=== PATIENT | female | born 1990 | race Two or more races ===

== ENCOUNTER 2020-08-17 12:30 | Outpatient (REF) | payer MEDICAID, SELFPAY ==
[2020-08-17 13:31] LABS: COVID-19 Test Negative (Negative); IDNOW Serial# 55D5AD1C
== END 2020-08-17 12:31 | disposition home or self-care (01) ==
LOC: HO.LAB 12:30
PROVIDERS: Visit Provider Internal Medicine
DX: Z20.822 Contact with and (suspected) exposure to COVID-19 (principal)
CPT/HCPCS: 36415; 87635; C9803

== ENCOUNTER 2021-08-23 20:30 | Emergency (ER) | payer MEDICAID, SELFPAY ==
--- NOTE | ~2021-08-23 | US_ITS ---
EXAMINATION: US PELVIS CLINICAL INFORMATION: Heavy vaginal bleeding. Clinical one month. Cramping. LMP now. COMPARISON: OB ultrasound 10/05/2014. TECHNIQUE: Ultrasound of the pelvis is performed using both transabdominal and transvaginal transducers along with Doppler. Transvaginal imaging is performed due to inadequate visualization transabdominally. FINDINGS: Uterus: The uterus is anteverted and measures 11.2 cm x 5.2 cm x 4.7 cm. Estimated volume 8.0 mL. No fibroids are identified. The endometrial echo complex measures 1.2 cm in maximum width and trace endometrial cavity fluid is noted. The right ovary measures 3.2 cm x 2.4 cm x 2.0 cm and is normal in appearance. Estimated volume 8.0 mL. Transabdominal spectral imaging demonstrates grossly normal low resistive arterial and venous waveforms within the right ovary. The left ovary measures 3.0 cm x 2.5 cm x 1.8 cm. Estimated volume 7.1 mm. A single 1.2 cm x 1.0 cm x 0.8 cm rounded anechoic focus is present within the left ovary. Low resistive mixed arterial and venous waveforms are noted within the left ovary. Trace anechoic fluid is noted in the pelvic cul-de-sac. US/US pelvic and transvaginal IMPRESSION: *Normal sonographic appearance of the uterus and ovaries. The endometrial echo complex measures 1.2 cm in width, within normal limits of size. Trace heterogeneous fluid is noted within the fundus of the endometrial cavity and is consistent with physiologic fluid. Trace anechoic free to peritoneal fluid which is physiologic in appearance is noted in the pelvic cul-de-sac.
[2021-08-23 21:49] VITALS: BP 119/75; PULSE 62; RESP 16; TEMP 37.2; O2SAT 98; BMI 32.3
[2021-08-23 22:09] LABS: MANUAL DIFF FLAG NO
[2021-08-23 22:12] LABS: Basophils Absolute Auto 0.1 X10*3/uL (0.0-0.2); Basophils Percent Auto 0.6 % (0-2); Eosinophils Absolute Auto 0.3 X10*3/uL (0.0-0.4); Eosinophils Percent Auto 3.3 % (0-4); Hematocrit 39.4 % (37.0-47.0); Hemoglobin 13.3 g/dl (12.0-16.0); Imm Gran Abs Auto 0.02 X10*3/uL (0.00-0.03); Imm Gran Pct Auto 0.2 % (0.0-0.4); Lymphocytes Absolute Auto 4.4 X10*3/uL (1.2-4.9); Lymphocytes Percent Auto 48.2 % (20-40); Mean Corpuscular HGB Conc 33.8 g/dl (31.0-35.0); Mean Corpuscular Hemoglobin 32.3 pg (27.0-33.0); Mean Corpuscular Volume 95.6 fL (80.0-98.0); Mean Platelet Volume 9.3 fL (9.4-12.3); Monocytes Absolute Auto 0.6 X10*3/uL (0.1-1.2); Monocytes Percent Auto 6.8 % (2-11); Neutrophils Absolute Auto 3.7 x10*3/uL (2.0-8.3); Neutrophils Percent Auto 40.9 % (45-73); Platelet Count 235 X10*3/uL (160-400); Red Blood Count 4.12 X10*6/uL (4.20-5.50); Red Cell Distribution Width 11.9 % (11.0-16.0); White Blood Count 9.1 X10*3/uL (4.8-10.8)
[2021-08-23 22:31] LABS: Alanine Aminotransferase 40 U/L (0-31); Albumin Level 3.7 g/dL (3.5-5.0); Alkaline Phosphatase 61 U/L (39-117); Anion Gap 8 (12-20); Aspartate Amino Transferase 29 U/L (5-31); Bilirubin Total 0.2 mg/dL (0.0-1.0); Blood Urea Nitrogen 17 mg/dL (9-16); Calcium 9.1 mg/dL (8.4-10.2); Carbon Dioxide 29 mmol/L (22-29); Chloride 105 mmol/L (96-108); Creatinine Clr Calc Pharmacy 84.1; Estimated Glomerular Filt Rate 58; Glucose Random 91 mg/dL (60-115); Potassium 3.9 mmol/L (3.3-5.1); Sodium 138 mmol/L (135-145); Total Protein 6.6 g/dL (6.5-8.0)
[2021-08-23 22:35] LABS: HCG Quantitative < 2 mIU/mL
--- NOTE | 2021-08-23 23:21 | ED_ITS ---
HPI - Female Genitourinary General Chief complaint: Abdominal Pain Stated complaint: menstrual bleeding, numbness Time Seen by Provider: 08/23/21 23:09 Source: patient Mode of arrival: ambulatory Limitations: no limitations History of Present Illness HPI Narrative: 31-year-old female presents with heavy menstrual bleeding, fatigue and dizziness. States that she had an 1 month ago MD elicited complaint: vaginal bleeding and pelvic pain Onset (ago): day(s) Location of symptoms: vaginal Severity: moderate Female Urogenital Radiation: Non-Radiating Severity scale (1-10): 8 Quality of pain: cramping and aching Consistency: progressively worsening Vaginal discharge: none Vaginal bleeding: heavy, dark red and clots Exacerbating factors: movement Relieving factors: none Associated symptoms: abdominal pain, weakness, chills and nausea Treatment prior to arrival: none Sexual activity: Yes Patient : No Related Data Allergies Allergy/AdvReac Type Severity Reaction Status Date / Time No Known Allergies Allergy Mild NOT Unverified 01/13/20 17:25 APPLICABLE Review of Systems Review of Systems: Constitutional: No Fever, cough Chills ENT/Mouth: No Ear Pain, No Hoarseness, No sore throat Eyes: No Eye Pain, No Swelling, No Redness, No Foreign Body Cardiovascular: No Chest Pain, No SOB Respiratory: No Cough, No Dyspnea Gastrointestinal: No Nausea, No Vomiting, No Diarrhea, No abdominal Pain Genitourinary: Positive heavy vaginal bleeding, positive vaginal pain No Dysuria, No Hematuria Musculoskeletal: No joint pain, No Myalgias, No Joint Swelling Skin: No Skin lacerations, No rash Neuro: No Weakness, No Numbness, No Paresthesias, No Loss of Consciousness, No Dizziness, No Headache Psych: No Anxiety/Panic, No Depression Heme/Lymph: no easy bruising, no Lymphadenopathy Endocrine: No Polyuria, No Polydipsia Yes all other systems are reviewed and are negative [facility] Past Medical History Attestation statement: The following information was validated with the patient. Source: old records reviewed Social History Social History Advance Directives: No Advance Directives Information Provided: Yes Patient : No Physical Exam Vital Signs: Vital Signs: Last Vital Signs Temp 97.8 F 08/24/21 01:01 Pulse 53 08/24/21 01:01 Resp 26 H 08/24/21 01:01 BP 115/63 08/24/21 01:01 Pulse Ox 98 08/24/21 01:01 BMI result Body Mass Index 32.3 Appearance: Alert. Oriented X3. Mild distress. Eyes: Pupils equal, round and reactive to light. ENT: Pharynx normal. Neck: Normal inspection. Neck supple. CVS: Normal heart rate and rhythm. Pulses normal. Respiratory: No respiratory distress. Breath sounds normal. Abdomen: Soft and suprapubic and adnexal tenderness to palpation Skin: Skin warm and dry. Normal skin color. Normal skin turgor. Extremities: No lower extremity edema. Gait well balanced and well coordinated. Neuro: No motor deficit. No sensory deficit. Cranial nerves 2-12 intact Course Course Course Narrative: 31-year-old female presents for heavy menstrual cycle, exhaustion, dizziness, and left arm tingling. States that she had a procedural approximately 1 month ago. Physical exam indicates tenderness to palpation to the suprapubic and bilateral adnexa. Will order pelvic ultrasound to rule out retained s ecundum. :29 pelvic ultrasound is normal. 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 Patient verbalized understanding of and agrees to plan of care to discharge home. Verbalized understanding of signs and symptoms indicating need for emergent intervention MDM - Female Genitourinary MDM Narrative Medical decision making narrative: Retained secundum, PA Differential Diagnosis Differential diagnosis: Likely cervicitis and cystitis Medical Records Attestation: I reviewed the patient's medical records. Lab Data Attestation: I reviewed the patient's lab results. Result diagrams: 08/23/21 22:04 08/23/21 22:04 Labs: Lab Results 08/23/21 08/23/21 08/24/21 Range/Units 22:04 22:04 01:05 WBC 9.1 (4.8-10.8) X10*3/uL RBC 4.12 L (4.20-5.50) X10*6/uL Hgb 13.3 (12.0-16.0) g/dl Hct 39.4 (37.0-47.0) % MCV 95.6 (80.0-98.0) fL MCH 32.3 (27.0-33.0) pg MCHC 33.8 (31.0-35.0) g/dl RDW 11.9 (11.0-16.0) % Plt Count 235 (160-400) X10*3/uL MPV 9.3 L (9.4-12.3) fL Immature Gran % (Auto) 0.2 (0.0-0.4) % Neut % (Auto) 40.9 L (45-73) % Lymph % (Auto) 48.2 H (20-40) % [place] % (Auto) 6.8 (2-11) % Eos % (Auto) 3.3 (0-4) % Baso % (Auto) 0.6 (0-2) % Lymph # (Auto) 4.4 (1.2-4.9) X10*3/uL [place] # (Auto) 0.6 (0.1-1.2) X10*3/uL Eos # (Auto) 0.3 (0.0-0.4) X10*3/uL Baso # (Auto) 0.1 (0.0-0.2) X10*3/uL Abs Immat Gran (auto) 0.02 (0.00-0.03) X10*3/uL Absolute Neuts (auto) 3.7 (2.0-8.3) x10*3/uL Absolute Nucleated RBC 0.000 (0.0-0.012) X10*3/uL Nucleated RBC % (auto) 0.0 (0.0-0.2) /100WBC Sodium 138 (135-145) mmol/L Potassium 3.9 (3.3-5.1) mmol/L Chloride 105 (96-108) mmol/L Carbon Dioxide 29 (22-29) mmol/L Anion Gap 8 L (12-20) BUN 17 H (9-16) mg/dL Creatinine 1.11 (0.5-1.4) mg/dL Estim Creat Clear Calc 84.1 Estimated GFR 58 Random Glucose 91 (60-115) mg/dL Calcium 9.1 (8.4-10.2) mg/dL Total Bilirubin 0.2 (0.0-1.0) mg/dL AST 29 (5-31) U/L ALT 40 H (0-31) U/L Alkaline Phosphatase 61 (39-117) U/L Total Protein 6.6 (6.5-8.0) g/dL Albumin 3.7 (3.5-5.0) g/dL Beta HCG, Quant < 2 mIU/mL Influenza Type A (PCR) NEGATIVE (Negative) Influenza Type B (PCR) NEGATIVE (Negative) RSV RNA Qual (PCR) NEGATIVE (Negative) SARS-CoV-2 RNA (RT-PCR) NEGATIVE (Negative) Imaging Data Pelvic ultrasound: Attestation: I personally reviewed and interpreted this imaging study as follows: Radiologist's impression: EXAMINATION:? US PELVIS CLINICAL INFORMATION:? Heavy vaginal bleeding. Clinical one month. Cramping. LMP now. COMPARISON: OB ultrasound 10/05/2014. TECHNIQUE: Ultrasound of the pelvis is performed using both transabdominal and transvaginal transducers along with Doppler. Transvaginal imaging is performed due to inadequate visualization transabdominally. FINDINGS: Uterus: The uterus is anteverted and measures 11.2 cm x 5.2 cm x 4.7 cm. Estimated volume 8.0 mL. No fibroids are identified. The endometrial echo complex measures 1.2 cm in maximum width and trace endometrial cavity fluid is noted. The right ovary measures 3.2 cm x 2.4 cm x 2.0 cm and is normal in appearance. Estimated volume 8.0 mL. Transabdominal spectral imaging demonstrates grossly normal low resistive arterial and venous waveforms within the right ovary. The left ovary measures 3.0 cm x 2.5 cm x 1.8 cm. Estimated volume 7.1 mm. A single 1.2 cm x 1.0 cm x 0.8 cm rounded anechoic focus is present within the left ovary. Low resistive mixed arterial and venous waveforms are noted within the left ovary. Trace anechoic fluid is noted in the pelvic cul-de-sac. US/US pelvic and transvaginal IMPRESSION: *Normal sonographic appearance of the uterus and ovaries. The endometrial echo complex measures 1.2 cm in width, within normal limits of size. Trace heterogeneous fluid is noted within the fundus of the endometrial cavity and is consistent with physiologic fluid. Trace anechoic free to peritoneal fluid which is physiologic in appearance is noted in the pelvic cul-de-sac. Discharge Plan Discharge Clinical Impression: Dysfunctional uterine bleeding Patient Disposition: Home, Self-Care Instructions: Dysfunctional Uterine Bleeding (ED) Additional Instructions: You were evaluated for abnormal vaginal bleeding. Pelvic ultrasound is negative for retained secundum. 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 Flu and COVID are negative Thank you for choosing this emergency department for evaluation. Please follow-up with primary care physician as needed. Return to the emergency department for any new, concerning, or worsening symptoms.
[2021-08-24 01:01] VITALS: BP 115/63; PULSE 53; RESP 26; TEMP 36.6; O2SAT 98
[2021-08-24 01:48] LABS: Influenza A PCR NEGATIVE (Negative); Influenza B PCR NEGATIVE (Negative); Resp Syncy Virus RNA Qual PCR NEGATIVE (Negative); SARS COV2 PCR INHOUSE NEGATIVE (Negative)
== END 2021-08-24 02:14 | disposition home or self-care (01) ==
PROVIDERS: Nurse Practitioner Family; Emergency Provider Emergency Medicine
DX: N93.8 Other specified abnormal uterine and vaginal bleeding (principal); Z20.822 Contact with and (suspected) exposure to COVID-19
CPT/HCPCS: 0241U; 36415; 76830; 76856; 80053; 84702; 85025; 99284

== ENCOUNTER 2022-11-25 13:41 | Emergency (ER) | payer MEDICAID, SELFPAY ==
--- NOTE | ~2022-11-25 | XR_ITS ---
EXAMINATION: XR CHEST CLINICAL INFORMATION: Chest pain COMPARISON: October 2017. TECHNIQUE: Frontal view of the chest was obtained. 2:12 PM FINDINGS: No significant abnormality is noted involving the heart, lungs, mediastinum, bony thorax or soft tissues. XR/XR chest 1V IMPRESSION: Unremarkable examination.
--- NOTE | 2022-11-25 13:43 | ECG_ITS ---
Test Reason : CHEST TIGHTNESS Blood Pressure : / mmHG Vent. Rate : 072 BPM Atrial Rate : 072 BPM P-R Int : 130 ms QRS Dur : 074 ms QT Int : 360 ms P-R-T Axes : 051 052 017 degrees QTc Int : 394 ms Normal sinus rhythm with sinus arrhythmia Normal ECG When compared with ECG of 16-NOV-2017 10:39, No significant change was found Referred By: Zain Maguire Electronically Signed By:ANNE RIOS
--- NOTE | 2022-11-25 13:46 | ED_ITS ---
HPI - General Adult General Chief complaint: Chest Pain Stated complaint: chest pain and tightness Time Seen by Provider: 11/25/22 17:44 Source: patient Mode of arrival: ambulatory Limitations: no limitations History of Present Illness HPI narrative: Patient with no significant medical history history of anxiety and stress not on any control medication no history of DVT no recent travel comes here for mid chest pain for last 3- 4 days which days constant in mid chest sharp increases on taking a deep breath no cough nonsmoker no substance abuse Related Data Previous Rx's Medication Instructions Recorded lorazepam 0.5 mg tablet (Ativan) 0.5 mg PO BEDTIME PRN anxiety #14 11/25/22 tabs Allergies Allergy/AdvReac Type Severity Reaction Status Date / Time No Known Allergies Allergy Mild NOT Unverified 01/13/20 17:25 APPLICABLE Review of Systems Review of Systems: Yes all other systems are reviewed and are negative REPLACED BY [facility] Social History Social History Smoked in Last 30 Days: No Use of substances other than those prescribed or required for medical reasons: Yes Substance Use Type: Marijuana Advance Directives: No Advance Directives Information Provided: Yes Physical Exam ED Vital Signs: Vital Signs - 24 hr 11/25/22 14:28 Temperature 96.5 F L Pulse Rate 73 Respiratory Rate 20 Blood Pressure 116/76 Pulse Oximetry 100 Oxygen Delivery Method Room Air BMI result Body Mass Index 41.0 Appearance: Alert. Oriented X3. No acute distress. Anxious Eyes: PERRLA, No Nystagmus ENT: Pharynx normal. Oral Mucosa moist Neck: Normal inspection. Neck supple. CVS: Normal heart rate and rhythm. Pulses normal. Respiratory: No respiratory distress. Equal air entry bilateral, no wheezing/rales/rhonchi Abdomen: Soft and nontender. Bowel sounds are present, no mass palpable, no CVA tenderness Skin: Skin warm and dry. Normal skin color. Normal skin turgor. Extremities: No lower extremity edema. No calf tenderness Neuro: Oriented X 3. No motor deficit. Course Course Course Narrative: This is an RME: Additional HPI, ROS, PE not included below will be deferred to primary provider. 32-year-old female presents with substernal chest pain that radiates into the back the past 3 days, sharp in nature. Reports g uriel had a heart attack recently so she well on it to get checked out. She also reports associated anxiety. No shortness of breath, fevers, chills, nausea, vomiting, abdomina pain. Plan labs, imaging, EKG. Medications Administered Discontinued Medications Generic Name Dose Route Start Last Admin Trade Name Anay PRN Reason Stop Dose Admin Lorazepam 1 mg 11/25/22 18:29 11/25/22 19:14 Lorazepam 1 Mg Tablet PO 11/25/22 18:30 1 mg ONCE ONE Administration Medical Decision Making Medical Decision Making [facility] Narrative: Patient atypical chest pain for last 3 days normal EKG normal troponin likely from anxiety will discharge patient home on Ativan heart score is 0 Lab Data [facility] Lab Attestation statement: I reviewed the patient's lab results. 11/25/22 14:24 11/25/22 14:24 Labs: Lab Results 11/25/22 11/25/22 11/25/22 Range/Units 14:24 14:24 14:24 WBC 7.7 (4.8-10.8) X10*3/uL RBC 4.08 L (4.20-5.50) X10*6/uL Hgb 13.0 (12.0-16.0) g/dl Hct 38.8 (37.0-47.0) % MCV 95.1 (80.0-98.0) fL MCH 31.9 (27.0-33.0) pg MCHC 33.5 (31.0-35.0) g/dl RDW 11.9 (11.0-16.0) % Plt Count 253 (160-400) X10*3/uL MPV 9.2 L (9.4-12.3) fL Immature Gran % (Auto) 0.5 H (0.0-0.4) % Neut % (Auto) 51.6 (45-73) % Lymph % (Auto) 38.2 (20-40) % [place] % (Auto) 7.4 (2-11) % Eos % (Auto) 1.8 (0-4) % Baso % (Auto) 0.5 (0-2) % Lymph # (Auto) 3.0 (1.2-4.9) X10*3/uL [place] # (Auto) 0.6 (0.1-1.2) X10*3/uL Eos # (Auto) 0.1 (0.0-0.4) X10*3/uL Baso # (Auto) 0.0 (0.0-0.2) X10*3/uL Abs Immat Gran (auto) 0.04 H (0.00-0.03) X10*3/uL Absolute Neuts (auto) 4.0 (2.0-8.3) x10*3/uL Absolute Nucleated RBC 0.000 (0.0-0.012) X10*3/uL Nucleated RBC % (auto) 0.0 (0.0-0.2) /100WBC Sodium 140 (135-145) mmol/L Potassium 3.9 (3.3-5.1) mmol/L Chloride 104 (96-108) mmol/L Carbon Dioxide 25 (22-29) mmol/L Anion Gap 15 (12-20) BUN 8 L (9-16) mg/dL Creatinine 0.97 (0.5-1.4) mg/dL Estim Creat Clear Calc 108.3 Estimated GFR > 60 Random Glucose 96 (60-115) mg/dL Calcium 9.7 D (8.4-10.2) mg/dL Magnesium 1.8 (1.6-2.6) mg/dL Total Bilirubin 0.4 (0.0-1.0) mg/dL AST 17 (5-31) U/L ALT 32 H (0-31) U/L Alkaline Phosphatase 69 (39-117) U/L Troponin I High Sens (<3.5-17.0) ng/L B-Natriuretic Peptide 10 (<100) pg/mL Total Protein 7.2 (6.5-8.0) g/dL Albumin 3.9 (3.5-5.0) g/dL COVID-19 (NICOLE) (Negative) COVID-19 Clin Com 11/25/22 11/25/22 Range/Units 14:24 14:24 WBC (4.8-10.8) X10*3/uL RBC (4.20-5.50) X10*6/uL Hgb (12.0-16.0) g/dl Hct (37.0-47.0) % MCV (80.0-98.0) fL MCH (27.0-33.0) pg MCHC (31.0-35.0) g/dl RDW (11.0-16.0) % Plt Count (160-400) X10*3/uL MPV (9.4-12.3) fL Immature Gran % (Auto) (0.0-0.4) % Neut % (Auto) (45-73) % Lymph % (Auto) (20-40) % [place] % (Auto) (2-11) % Eos % (Auto) (0-4) % Baso % (Auto) (0-2) % Lymph # (Auto) (1.2-4.9) X10*3/uL [place] # (Auto) (0.1-1.2) X10*3/uL Eos # (Auto) (0.0-0.4) X10*3/uL Baso # (Auto) (0.0-0.2) X10*3/uL Abs Immat Gran (auto) (0.00-0.03) X10*3/uL Absolute Neuts (auto) (2.0-8.3) x10*3/uL Absolute Nucleated RBC (0.0-0.012) X10*3/uL Nucleated RBC % (auto) (0.0-0.2) /100WBC Sodium (135-145) mmol/L Potassium (3.3-5.1) mmol/L Chloride (96-108) mmol/L Carbon Dioxide (22-29) mmol/L Anion Gap (12-20) BUN (9-16) mg/dL Creatinine (0.5-1.4) mg/dL Estim Creat Clear Calc Estimated GFR Random Glucose (60-115) mg/dL Calcium (8.4-10.2) mg/dL Magnesium (1.6-2.6) mg/dL Total Bilirubin (0.0-1.0) mg/dL AST (5-31) U/L ALT (0-31) U/L Alkaline Phosphatase (39-117) U/L Troponin I High Sens < 2.7 (<3.5-17.0) ng/L B-Natriuretic Peptide (<100) pg/mL Total Protein (6.5-8.0) g/dL Albumin (3.5-5.0) g/dL COVID-19 ([place]ICOLE) Negative (Negative) COVID-19 Clin Com See Note Independent Interpretation I performed an independent interpretation of an: EKG Interpretation: Normal sinus rhythm with sinus arrhythmia heart rate 72 beats per minute no acu te ST-T no acute ischemia Discharge Plan Discharge Clinical Impression: Atypical chest pain, Anxiety Patient Disposition: Home, Self-Care Instructions: Chest Pain (ED), Anxiety (ED) Additional Instructions: Rest at home take medication to relax and sleep Follow with PCP for further evaluation as needed Prescriptions: New lorazepam [Ativan] 0.5 mg tablet 0.5 mg PO BEDTIME PRN (Reason: anxiety) Qty: 14 0RF Stand Alone Forms: Work/School Release Interventions: ED Discharge Assessment Last Done: 11/25/22 19:17 Discharge Date/Time: 11/25/22 19:17
[2022-11-25 14:28] VITALS: BP 116/76; PULSE 73; RESP 20; TEMP 35.8; O2SAT 100; BMI 41.0
[2022-11-25 14:38] LABS: MANUAL DIFF FLAG NO
[2022-11-25 14:42] LABS: Basophils Percent Auto 0.5 % (0-2); Eosinophils Absolute Auto 0.1 X10*3/uL (0.0-0.4); Eosinophils Percent Auto 1.8 % (0-4); Hematocrit 38.8 % (37.0-47.0); Imm Gran Abs Auto 0.04 X10*3/uL (0.00-0.03); Imm Gran Pct Auto 0.5 % (0.0-0.4); Lymphocytes Percent Auto 38.2 % (20-40); Mean Corpuscular HGB Conc 33.5 g/dl (31.0-35.0); Mean Corpuscular Hemoglobin 31.9 pg (27.0-33.0); Mean Corpuscular Volume 95.1 fL (80.0-98.0); Mean Platelet Volume 9.2 fL (9.4-12.3); Monocytes Absolute Auto 0.6 X10*3/uL (0.1-1.2); Monocytes Percent Auto 7.4 % (2-11); Neutrophils Percent Auto 51.6 % (45-73); Platelet Count 253 X10*3/uL (160-400); Red Blood Count 4.08 X10*6/uL (4.20-5.50); Red Cell Distribution Width 11.9 % (11.0-16.0); White Blood Count 7.7 X10*3/uL (4.8-10.8)
[2022-11-25 14:54] LABS: Alanine Aminotransferase 32 U/L (0-31); Albumin Level 3.9 g/dL (3.5-5.0); Alkaline Phosphatase 69 U/L (39-117); Anion Gap 15 (12-20); Aspartate Amino Transferase 17 U/L (5-31); Bilirubin Total 0.4 mg/dL (0.0-1.0); Blood Urea Nitrogen 8 mg/dL (9-16); Calcium 9.7 mg/dL (8.4-10.2); Carbon Dioxide 25 mmol/L (22-29); Chloride 104 mmol/L (96-108); Creatinine Clr Calc Pharmacy 108.3; Estimated Glomerular Filt Rate > 60; Glucose Random 96 mg/dL (60-115); Magnesium 1.8 mg/dL (1.6-2.6); Potassium 3.9 mmol/L (3.3-5.1); Sodium 140 mmol/L (135-145); Total Protein 7.2 g/dL (6.5-8.0)
[2022-11-25 14:59] LABS: B Type Natriuretic Peptide 10 pg/mL (<100)
[2022-11-25 15:01] LABS: COVID-19 Test Negative (Negative); IDNOW Serial# BCCEAD1C
[2022-11-25 15:12] LABS: Troponin-I High Sensitivity < 2.7 ng/L (<3.5-17.0)
[2022-11-25] MEDS: LORazepam 1 MG TABLET PO (19:14)
== END 2022-11-25 19:17 | disposition home or self-care (01) ==
PROVIDERS: Physician Assistant; Emergency Provider Internal Medicine
DX: R07.89 Other chest pain (principal); F41.9 Anxiety disorder, unspecified; Z20.822 Contact with and (suspected) exposure to COVID-19; F12.90 Cannabis use, unspecified, uncomplicated; E66.9 Obesity, unspecified; Z68.41 Body mass index [BMI] 40.0-44.9, adult
CPT/HCPCS: 36415; 71045; 80053; 83735; 83880; 84484; 85025; 87635; 93005; 99283; 99284

== ENCOUNTER → 2022-11-25 13:43 | Outpatient (BNV) | payer MEDICAID, SELFPAY | PROVIDERS: Emergency Provider Internal Medicine; Visit Provider Internal Medicine | DX: R07.89 Other chest pain (principal) | CPT/HCPCS: 93010 ==

== ENCOUNTER 2023-05-13 16:42 | Emergency (ER) | payer MEDICAID, SELFPAY ==
--- NOTE | ~2023-05-13 | XR_ITS ---
EXAMINATION: XR THORACIC SPINE CLINICAL INFORMATION: Fall COMPARISON: None available. TECHNIQUE: 3 views of the thoracic spine were obtained. FINDINGS: Bone alignment is normal. No fracture or dislocation. Normal disc spaces. Normal paraspinal soft tissues. XR/XR thoracic spine 3V IMPRESSION: Unremarkable examination.
--- NOTE | ~2023-05-13 | XR_ITS ---
EXAMINATION: XR LUMBOSACRAL SPINE CLINICAL INFORMATION: Fall COMPARISON: None available. TECHNIQUE: Three views of the lumbosacral spine. FINDINGS: The vertebral bodies and posterior elements are normal. The disc spaces are preserved and the vertebral alignment is normal. The paraspinal soft tissues are normal. XR/XR lumbar spine 2-3V IMPRESSION: Unremarkable examination.
[2023-05-13 16:44] VITALS: BP 107/76; PULSE 61; RESP 16; TEMP 36.2; O2SAT 98; BMI 39.5
--- NOTE | 2023-05-13 16:47 | ED_ITS ---
HPI - General Adult General Chief complaint: Fall Stated complaint: fell back pain Time Seen by Provider: 05/13/23 17:56 Source: patient Mode of arrival: ambulatory Limitations: no limitations History of Present Illness HPI narrative: Patient is a 32-year-old female presenting to the ED with complaint of upper and lower back pain after a slip and fall on ice this morning. States she landed directly on her back. Did not take any OTC medications at home. Denies head strike or loss of consciousness, is not anticoagulated. Denies any weakness, numbness, or tingling to extremities. complaint: back pain Onset (ago): hour(s) Location: back Radiation: non-radiation Severity: moderate Quality: aching Pain Consistency: colicky Relieving factors: none Exacerbating factors: movement Associated symptoms: denies other symptoms Treatments prior to arrival: none Related Data Previous Rx's Medication Instructions Recorded lorazepam 0.5 mg tablet (Ativan) 0.5 mg PO BEDTIME PRN anxiety #14 11/25/22 tabs cyclobenzaprine 5 mg tablet 5 mg PO TID PRN muscle spasm #12 05/13/23 tabs lidocaine 5 % topical patch 1 patch topical DAILY #15 ea 05/13/23 Allergies Allergy/AdvReac Type Severity Reaction Status Date / Time No Known Allergies Allergy Mild NOT Unverified 01/13/20 17:25 APPLICABLE Review of Systems Review of Systems: As per HPI Yes all other systems are reviewed and are negative Constitutional: Constitutional: Reports as per HPI [facility] Social History Social History Substance Use Type: Marijuana Physical Exam ED Vital Signs: Vital Signs - 24 hr 05/13/23 16:44 Temperature 97.2 F Pulse Rate 61 Respiratory Rate 16 Blood Pressure 107/76 Pulse Oximetry 98 Oxygen Delivery Method Room Air BMI result Body Mass Index 39.5 Vital signs have been reviewed and appear to be correct. Blood pressure normal. Heart rate normal. Respiratory rate normal. Temperature normal. Oxygen saturation normal. Const General: cooperative, healthy appearing and no acute distress Orientation/consciousness: oriented to person, oriented to place, oriented to time and patient oriented x3 Limitations: no limitations HENMT Head: Yes normocephalic and Yes atraumatic Ears: external ears normal General nose exam: Normal external nose present Face and sinus: Yes face symmetric Mouth: oropharynx normal and moist mucous membranes Throat: Yes uvula midline Eyes Pupils: Equal, round and reactive pupils present Neck Neck: Yes normal visual inspection and Yes supple Resp Effort & Inspection: normal respiratory effort and able to speak in complete sentences Auscultation: clear to auscultation bilaterally Cardio Rate: regular rate Rhythm: regular rhythm Heart sounds: S1 normal heart sound present and S2 normal heart sound present GI Palpation (GI): Soft to palpation and nontender Auscultation: normoactive bowel sounds General: Yes no CVA tenderness Back/Spine/Pelvis Back: no CVA tenderness Cervical Spine: normal cervical lordosis, cervical ROM normal, No cervical muscular tenderness, No Cervical spine tenderness and No step off deformity Thoracic/Lumbar Spine: thoracic and lumbar spine normal to inspection, thoraco- lumbar ROM normal, straight leg raise negative bilaterally, pain with thoraco- lumbar ROM, paraspinal muscle tenderness bilaterally in the upper thoracic and in the upper lumbar, thoracic spinal tenderness at T3 and at T4 and lumbar spinal tenderness at L1 and at L2 Pelvis: no pain with anterior-posterior compression and no pain with lateral compression Sacroiliac joints: bilaterally nontender Skin General skin exam: elasticity normal and turgor normal Neuro General: oriented to person, oriented to place, oriented to time, patient oriented x3, moves all extremities, no focal motor deficits and CN's II-XI intact bilaterally Cranial nerves: Yes Equal, round and reactive pupils present Cognition (Neuro): normal cognition Extrem General: Yes full ROM, Yes no pedal edema and Yes no calf tenderness Psych Mental Status: mental status grossly normal Affect: normal affect Thought process: Normal thought process present Medical Decision Making Medical Decision Making MDM Narrative: Patient is a 32-year-old female presenting to the ED with complaint of upper and lower back pain after a slip and fall on ice this morning. On exam patient is awake, A+Ox3, VS WNL, afebrile, normal neurological exam without focal deficits, physical exam findings as above. Given reported symptoms and physical exam findings, initial differential includes contusion, musculoskeletal strain, fracture, spondylolisthesis. X-rays notable for no acute fractures. My interpretation is in agreement with the radiologist's interpretation. Will discharge home with flexeril and lidocaine patches, advised to alternate Tylenol and ibuprofen. Instructed patient to follow up with PCP. Return precautions discussed. Patient verbalized understanding of and agreement with plan. Differential Diagnosis Differential Diagnoses: The differential diagnosis associated with the presentation includes As per MDM. Independent Interpretation I performed an independent interpretation of an: Plain X-Ray Interpretation: No acute thoracic or lumbar vertebral fractures. Radiology Impression Discussion of test interpretation with radiology: I have reviewed the radiologist's reading. Radiologist Impression: XR/XR thoracic spine 3V IMPRESSION: Unremarkable examination. XR/XR lumbar spine 2-3V IMPRESSION: Unremarkable examination. External Record Review External record reviewed: Inpatient record, Office record and Outpatient record Prescription Management I considered prescription management with: Pain Medication and Other Discharge Plan Discharge Clinical Impression: Muscle strain of upper back, Lumbar strain Patient Disposition: Home, Self-Care Instructions: Low Back Strain (ED), Acute Low Back Pain (ED), R.I.C.E. Treatment (ED), Thoracic Back Strain (ED) Additional Instructions: You were evaluated in the emergency department today for back pain. Your evaluation did not show signs of medical conditions requiring emergent intervention at this time. We recommended that you use ibuprofen or Tylenol per package directions every 6 hours as needed for pain. If necessary, you can alternate these medications so that you take one medication every 3 hours. For instance, at noon take ibuprofen, then at 3:00 p.m. take Tylenol, then at 6:00 p.m. take ibuprofen. You have been prescribed a muscle relaxer which you may take every 8 hours as needed for spasms. You have been prescribed 5% topical lidocaine patches which you can wear for up to 12 hours in a 24 hour period. Do not apply heat directly over the patches. Please schedule an appointment for follow-up with your primary care physician this week for further evaluation of your symptoms. Return to the emergency department if you experience worsening back pain, difficulty walking, fevers, numbness, tingling, incontinence, groin numbness or tingling, or any other concerning symptoms. Prescriptions: New cyclobenzaprine 5 mg tablet 5 mg PO TID PRN (Reason: muscle spasm) Qty: 12 0RF lidocaine 5 % adhesive patch,medicated 1 patch topical DAILY Qty: 15 0RF Rx Instructions: leave on most painful area for up to 12 hrs No Action lorazepam [Ativan] 0.5 mg tablet 0.5 mg PO BEDTIME PRN (Reason: anxiety) Qty: 14 0RF
--- NOTE | 2023-05-13 18:09 | PC.NURSE ---
Pt evaluated by [employer], cleared for dc home. Awaiting dc papers.
== END 2023-05-13 18:12 | disposition home or self-care (01) ==
PROVIDERS: Emergency Provider Emergency Medicine Emergency Medical Services
DX: S29.012A Strain of muscle and tendon of back wall of thorax, initial encounter (principal); S39.012A Strain of muscle, fascia and tendon of lower back, initial encounter; W00.0XXA Fall on same level due to ice and snow, initial encounter; Y93.89 Activity, other specified; Y92.9 Unspecified place or not applicable; Y99.9 Unspecified external cause status
CPT/HCPCS: 72072; 72100; 99282; 99283

== ENCOUNTER 2023-09-18 11:15 | Emergency (ER) | payer SELFPAY ==
--- NOTE | ~2023-09-18 | XR_ITS ---
EXAMINATION: XR CHEST CLINICAL INFORMATION: Chest pain. COMPARISON: Chest radiograph dated 11/25/2022. TECHNIQUE: 2 views of the chest were obtained. FINDINGS: The heart is normal in size. The lungs are clear. There is no pleural effusion or pneumothorax. No acute osseous abnormality. XR/XR chest 2V IMPRESSION: Stable appearance of the heart and lungs. No active disease.
[2023-09-18 11:50] VITALS: BP 142/82; PULSE 73; RESP 18; TEMP 37.1; O2SAT 99; BMI 44.8
--- NOTE | 2023-09-18 11:52 | ED_ITS ---
HPI - General Adult General Chief complaint: General Medical Stated complaint: Fever, sore throat, lost voice Time Seen by Provider: 09/18/23 12:45 History of Present Illness HPI narrative: patient complains of 3 days of gradually worsening sore throat body aches fatigue and yesterday she started to lose her voice and now she can only talk in a whisper, she can tolerate p.o. but it is painful, she has been able to drink fluids She has a mild runny nose no cough no shortness of breath no chest pain no abdominal pain no nausea vomiting or diarrhea no dysuria Related Data Previous Rx's ?Medication ?Instructions ?Recorded lorazepam 0.5 mg tablet (Ativan) 0.5 mg PO BEDTIME PRN anxiety #14 11/25/22 tabs cyclobenzaprine 5 mg tablet 5 mg PO TID PRN muscle spasm #12 05/13/23 tabs lidocaine 5 % topical patch 1 patch topical DAILY #15 ea 05/13/23 ibuprofen 600 mg tablet 600 mg PO Q6H PRN pain #20 tabs 09/18/23 prednisone 20 mg tablet 40 mg (2 x 20 mg) PO DAILY 2 days 09/18/23 #4 tabs Allergies Allergy/AdvReac Type Severity Reaction Status Date / Time No Known Allergies Allergy Mild NOT Verified 09/18/23 11:51 APPLICABLE FOR[facility], LAT[facility] Past Medical History Source: nursing notes reviewed Social History Social History Substance Use Type: Marijuana Advance Directives: No Do you have a plan to hurt others: No Plan Physical Exam ED Vital Signs: Vital Signs - 24 hr 09/18/23 11:50 Temperature 98.8 F Pulse Rate 73 Respiratory Rate 18 Blood Pressure 142/82 H Pulse Oximetry 99 Oxygen Delivery Method Room Air BMI result Body Mass Index 44.8 general appearance is no acute distress, comfortable, speaking in a whispering voice The ears are both normal with bilateral normal tympanic membranes pinkish white color good light reflex, membranes intact, canals patent and normal in a ppearance The sinuses nontender The eyes no redness or discharge The pharynx there are symmetrically mildly enlarged tonsils with some redness and exudate, there is no drooling no trismus no deviation of the uvula The neck is supple Chest is clear to auscultation bilateral full symmetric equal breath sounds Heart no murmur Extremities full range of motion x4 Course Course Course Narrative: This is a Rapid Medical Examination (RME) performed by Yimi Cruz PA-C in triage. Full HPI, ROS, assessment and treatment plan per primary provider in the Main ED. 33 yo female here for eval of subjective fever, sore throat, nasal congestion, nonproductive cough, and loss of voice x24 hours. no known sick contacts. afebrile in triage. lungs clear, no wheezes/rhonchi. Plan: viral/strep swab, and cxr ordered. Viral panel and chest x-ray are negative Patient is treated with steroid for the laryngitis and sore throat as well as Motrin for aches and pains and is otherwise well-appearing tolerating p.o. and is discharged Medical Decision Making Lab Data MDM Lab Attestation statement: I reviewed the patient's lab results. Labs: Lab Results 09/18/23 Range/Units 11:56 Influenza Type A (PCR) NEGATIVE (Negative) Influenza Type B (PCR) NEGATIVE (Negative) RSV RNA Qual (PCR) NEGATIVE (Negative) SARS-CoV-2 RNA (RT-PCR) NEGATIVE (Negative) S. pyogenes GrpA TATY Negative (Negative) Discharge Plan Discharge Clinical Impression: Laryngitis, Acute viral pharyngitis Patient Disposition: Home, Self-Care Additional Instructions: the tests for COVID flu and strep throat were all negative Chest x-ray was normal Laryngitis, losing her voice, usually lasts just a couple of days and steroid often will shorten the course and make it better quicker Return any time any worse condition or concerns Prescriptions: New prednisone 20 mg tablet 40 mg PO DAILY 2 Days Qty: 4 0RF ibuprofen 600 mg tablet 600 mg PO Q6H PRN (Reason: pain) Qty: 20 0RF No Action lorazepam [Ativan] 0.5 mg tablet 0.5 mg PO BEDTIME PRN (Reason: anxiety) Qty: 14 0RF cyclobenzaprine 5 mg tablet 5 mg PO TID PRN (Reason: muscle spasm) Qty: 12 0RF lidocaine 5 % adhesive patch,medicated 1 patch topical DAILY Qty: 15 0RF Rx Instructions: leave on most painful area for up to 12 hrs Stand Alone Forms: Work/School Release Print Language: Comoran
[2023-09-18 12:13] LABS: IDNOW Serial# 58CA691E; Strep A Nucleic Acid Negative (Negative)
[2023-09-18 12:50] LABS: Influenza A PCR NEGATIVE (Negative); Influenza B PCR NEGATIVE (Negative); Resp Syncy Virus RNA Qual PCR NEGATIVE (Negative); SARS COV2 PCR INHOUSE NEGATIVE (Negative)
[2023-09-18] MEDS: Ibuprofen Oral Susp 200 MG/10 ML ORAL.SUSP 400 MG PO (15:46)
[2023-09-18] MEDS: dexAMETHasone sod phosphate 10 MG/ML VIAL IVPUSH (15:46)
[2023-09-18 15:57] VITALS: BP 142/82; PULSE 73; RESP 18; TEMP 37.1; O2SAT 99
== END 2023-09-18 15:58 | disposition home or self-care (01) ==
PROVIDERS: Physician Assistant Medical; Emergency Provider Emergency Medicine
DX: J04.0 Acute laryngitis (principal); J02.8 Acute pharyngitis due to other specified organisms; R07.9 Chest pain, unspecified; Z03.818 Encounter for observation for suspected exposure to other biological agents ruled out
CPT/HCPCS: 0241U; 71046; 87651; 99283; 99284; J1100

== ENCOUNTER 2024-06-14 15:41 | Emergency (ER) | payer OTHER, SELFPAY ==
--- NOTE | ~2024-06-14 | CT_ITS ---
CLINICAL HISTORY: head injury CT cervical spine without contrast Comparison: None Findings: Normal alignment. No fracture. No severe spinal canal stenosis. No epidural hematoma. Normal thickness of the prevertebral soft tissues. The lung apices are clear. Impression: No acute findings. This document has been electronically signed by: Kiley Rosa MD on 06/14/2024 17:23:59
--- NOTE | ~2024-06-14 | CT_ITS ---
CLINICAL HISTORY: head strike CT head without contrast Comparison: None Findings: No acute hemorrhage. No extra-axial fluid collection. No hydrocephalus, mass-effect or herniation. Vega-white differentiation is maintained. White matter is within normal limits for age. No acute orbital pathology. No acute soft tissue abnormality. No fracture. The visualized paranasal sinuses are predominantly clear. The mastoid air cells are clear. Impression: No acute findings. This document has been electronically signed by: Kiley Rosa MD on 06/14/2024 17:23:15
--- NOTE | 2024-06-14 16:31 | ED_ITS ---
HPI - Head Injury General Chief complaint: Head Injury Stated complaint: head injury from ice falling Time Seen by Provider: 06/14/24 17:52 Source: patient Mode of arrival: ambulatory Limitations: no limitations History of Present Illness ED Provider: Dr. Lady Bains HPI Narrative: Patient comes to the emergency room complaining of a headache after is no fell on her head from a roof. According to the patient, she was at work, walking towards the outside of the building. Heavy snow slid from the roof and fell on top of the patient's head. Patient did not lose consciousness. Patient states that this incident happened approximately 24 hours ago. Since then, patient has been having headache, feels a bit dizzy but still able to walk. Complaining of pain in the right side of the neck. Denies being on blood thinners, denies loss of consciousness. Related Data Previous Rx's ?Medication ?Instructions ?Recorded lorazepam 0.5 mg tablet (Ativan) 0.5 mg PO BEDTIME PRN anxiety #14 11/25/22 tabs cyclobenzaprine 5 mg tablet 5 mg PO TID PRN muscle spasm #12 05/13/23 tabs lidocaine 5 % topical patch 1 patch topical DAILY #15 ea 05/13/23 ibuprofen 600 mg tablet 600 mg PO Q6H PRN pain #20 tabs 09/18/23 prednisone 20 mg tablet 40 mg (2 x 20 mg) PO DAILY 2 days 09/18/23 #4 tabs acetaminophen 500 mg tablet 500 mg PO Q6H PRN fever or pain 06/14/24 #20 tabs ibuprofen 600 mg tablet 600 mg PO TID PRN pain #20 tabs 06/14/24 Allergies Allergy/AdvReac Type Severity Reaction Status Date / Time aspirin [ASA] Allergy Hives Verified 06/14/24 16:36 Review of Systems Review of Systems: Constitutional : No Weight loss, No Fever, No Chills, No Night Sweats, No Fatigue, No Malaise ENT/Mouth : No Hearing loss, No Ear Pain, No Nasal Congestion, No Sinus Pain, No Hoarseness, No sore throat, No Rhinorrhea, No Swallowing Difficulty Eyes: No Eye Pain, No Swelling, No Redness, No Foreign Body, No Discharge, No Vision Changes Cardiovascular : No Chest Pain, No SOB, No Dyspnea on Exertion, No Orthopnea, No Edema, No Palpitations Respiratory : No Cough, No Sputum, No Wheezing, No Smoke Exposure, No Dyspnea Gastrointestinal : No Nausea, No Vomiting, No Diarrhea, No Constipation, No abdominal Pain, No Hematochezia, No Melena Genitourinary : no irregular bleeding, No Dysuria, No Urinary Frequency, No Hematuria, No Urinary Incontinence, No Urgency, No Flank Pain, No Urinary Flow Changes, No Hesitancy Musculoskeletal : Complaining of right-sided pain, No Myalgias, No Joint Swelling Skin : No Skin Lesions, No rash Neuro : No Weakness, No Numbness, No Paresthesias, No Loss of Consciousness, complaining of dizziness, headache Psych : No Anxiety/Panic, No Depression, No SI/HI/AH/VH, No Social Issues, Heme/Lymph: No Bruising, No Bleeding,No Lymphadenopathy Endocrine : No Polyuria, No Polydipsia, No Temperature Intolerance REPLACED BY [facility] Social History Social History Substance Use Type: Marijuana Physical Exam Vital Signs: Vital Signs: Last Vital Signs Temp 98 F 06/14/24 16:34 Pulse 63 06/14/24 16:34 Resp 18 06/14/24 16:34 BP 130/84 06/14/24 16:34 Pulse Ox 98 06/14/24 16:34 BMI result Body Mass Index 42.0 Const: Other: Appearance: Alert. Oriented X3. No acute distress. Well-appearing, ambulatory Eyes: Pupils equal, round and reactive to light. ENT: Pharynx normal. Neck: Normal inspection. Neck supple. No lymph nodes noted. No crepitus, no palpable step-offs, normal range of motion with flexion and extension CVS: Normal heart rate and rhythm. Pulses normal. Normal S1 and S2 Respiratory: No respiratory distress. Breath sounds normal. No Wheezing. No rales Abdomen: Soft and nontender. No rigidity. No distention. Skin: Skin warm and dry. Normal skin color. Normal skin turgor. Extremities: No lower extremity edema. No Lacerations. No Rash Neuro: Oriented X 3. No motor deficit. No sensory deficit. Moving all extremities. No slurred speech. CN 2 through 12 grossly intact Psych: calm, cooperative, normal affect Course Course Course Narrative: This is an RME: Additional HPI, ROS, PE not included below will be deferred to primary provider. RME assessment and note performed by: Germaine Causey PA-C This is a 33-year-old female, with no known medical problems, who presents emergency department with complaints of headache status post head injury which occurred at work yesterday at 4:00 p.m.. Patient states that heavy ice and snow fell off of a roof, and struck her in the right side of her head. Denies LOC. She reports that she was days. She has had intermittent dizziness, headaches, nausea since the incident. She is neurologically intact. Not on anticoagulation. She has no midline cervical spine tenderness on examination. Plan: CT head and neck Medical Decision Making Medical Decision Making MDM Narrative: CT scan of the head and cervical spine do not show any acute abnormality. I discussed the findings with the patient, patient likely has a concussion. Patient's vitals are stable, patient is ambulatory with steady gait Information for work connection was given to the patient. Differential Diagnosis Differential Diagnoses: The differential diagnosis associated with the presentation includes (Contusion, concussion) Independent Interpretation I performed an independent interpretation of an: CT Scan Radiology Impression Discussion of test interpretation with radiology: I have reviewed the radiologist's reading. Radiologist Impression: No acute hemorrhage. No extra-axial fluid collection. No hydrocephalus, mass-effect or herniation. Vega-white differentiation is maintained. White matter is within normal limits for age. No acute orbital pathology. No acute soft tissue abnormality. No fracture. The visualized paranasal sinuses are predominantly clear. The mastoid air cells are clear. Normal alignment. No fracture. No severe spinal canal stenosis. No epidural hematoma. Normal thickness of the prevertebral soft tissues. The lung apices are clear. Discharge Plan Discharge Clinical Impression: Concussion without loss of consciousness Patient Disposition: Home, Self-Care Instructions: Concussion (ED) Additional Instructions: Please follow-up with your primary care physician tomorrow. If you have any worsening or new symptoms, please return to the emergency room or call 911 Prescriptions: New ibuprofen 600 mg tablet 600 mg PO TID PRN (Reason: pain) Qty: 20 0RF acetaminophen 500 mg tablet 500 mg PO Q6H PRN (Reason: fever or pain) Qty: 20 0RF No Action lorazepam [Ativan] 0.5 mg tablet 0.5 mg PO BEDTIME PRN (Reason: anxiety) Qty: 14 0RF cyclobenzaprine 5 mg tablet 5 mg PO TID PRN (Reason: muscle spasm) Qty: 12 0RF lidocaine 5 % adhesive patch,medicated 1 patch topical DAILY Qty: 15 0RF Rx Instructions: leave on most painful area for up to 12 hrs prednisone 20 mg tablet 40 mg PO DAILY 2 Days Qty: 4 0RF ibuprofen 600 mg tablet 600 mg PO Q6H PRN (Reason: pain) Qty: 20 0RF Referrals: Aurelio Mora MD [Physician] - 06/16/24 Stand Alone Forms: Work/School Release Print Language: Zambian
[2024-06-14 16:34] VITALS: BP 130/84; PULSE 63; RESP 18; TEMP 36.6; O2SAT 98; BMI 42.0
[2024-06-14 18:22] VITALS: BP 130/84; PULSE 63; RESP 18; TEMP 36.6; O2SAT 98
== END 2024-06-14 18:23 | disposition home or self-care (01) ==
PROVIDERS: Emergency Provider Emergency Medicine
DX: S06.0X0A Concussion without loss of consciousness, initial encounter (principal); M54.2 Cervicalgia; R51.9 Headache, unspecified; Y29.XXXA Contact with blunt object, undetermined intent, initial encounter; Y93.29 Activity, other involving ice and snow; Y92.9 Unspecified place or not applicable; Y99.0 Civilian activity done for income or pay
CPT/HCPCS: 70450; 72125; 99282; 99284

== ENCOUNTER → 2024-06-14 16:34 | Outpatient (BNV) | payer SELFPAY | PROVIDERS: Emergency Provider Emergency Medicine; Visit Provider Radiology Diagnostic Radiology | DX: S09.90XA Unspecified injury of head, initial encounter (principal); W20.8XXA Other cause of strike by thrown, projected or falling object, initial encounter | CPT/HCPCS: 70450; 72125 ==

== ENCOUNTER 2024-07-04 19:09 | Emergency (ER) | payer OTHER, SELFPAY ==
--- NOTE | ~2024-07-04 | CT_ITS ---
CLINICAL HISTORY: headache CT Head WO Contrast COMPARISON: CT/SR - CT HEAD/BRAIN WO IV CON - 06/14/24 16:41 EST FINDINGS: No acute intracranial hemorrhage. No evidence of acute infarction. No mass-effect or midline shift. No hydrocephalus. Visualized paranasal sinuses are clear. The mastoid air cells are clear. The visible orbits are normal. No acute fracture. Unremarkable soft tissues. IMPRESSION: No acute intracranial findings. This document has been electronically signed by: Angel Guerrero MD on 07/04/2024 21:18:27
--- NOTE | ~2024-07-04 | XR_ITS ---
CLINICAL HISTORY: CHEST TIGHTNESS Chest X-ray, 1 View COMPARISON: CR/SR - XR CHEST 2V - 09/18/23 12:33 EDT FINDINGS: No consolidation. No pleural effusion. No pneumothorax. No cardiomegaly. No acute fracture. IMPRESSION: No acute findings. This document has been electronically signed by: Angel Guerrero MD on 07/04/2024 20:58:10
--- NOTE | ~2024-07-04 | CT_ITS ---
CLINICAL HISTORY: block of ice fell on head CT Cervical Spine WO Contrast COMPARISON: CT/SR - CT CERVICAL SPINE WO IV CON - 06/14/24 16:41 EST FINDINGS: No acute fracture or malalignment. Soft tissues are normal. Lung apices are clear. IMPRESSION: No acute findings. This document has been electronically signed by: Angel Guerrero MD on 07/04/2024 21:21:55
[2024-07-04 19:19] VITALS: BP 130/84; PULSE 67; RESP 16; TEMP 36.9; O2SAT 99; BMI 42.6
--- NOTE | 2024-07-04 19:25 | ECG_ITS ---
Test Reason : chest tightness Blood Pressure : */* mmHG Vent. Rate : 59 BPM Atrial Rate : 59 BPM P-R Int : 138 ms QRS Dur : 76 ms QT Int : 390 ms P-R-T Axes : 62 51 26 degrees QTcB Int : 386 ms Sinus bradycardia Otherwise normal ECG When compared with ECG of 25-Nov-2022 13:47, No significant change was found Referred By: Michael Lacey Electronically Signed By: ANNE RIOS
--- NOTE | 2024-07-04 19:25 | ED.GENADULT ---
HPI - General Adult General Chief complaint: Head Injury Stated complaint: headaches/trouble walking/?concussion Time Seen by Provider: 07/04/24 23:08 Source: patient Limitations: no limitations History of Present Illness ED Provider: Ting Sousa PA-C HPI narrative: 34-year-old female with a history of morbid obesity, presents after head injury that occurred June 13 while at work. Patient states ice dislodged from the roof striking her in the head, from a 15 ft drop. Patient has been diagnosed with a concussion. Patient states she has been having daily headaches since the incident. Associated nausea, dizziness, phonophobia and photophobia. Patient has been using [id number] Tylenol which briefly helps her discomfort, however the headaches return. Related Data Previous Rx's ?Medication ?Instructions ?Recorded lorazepam 0.5 mg tablet (Ativan) 0.5 mg PO BEDTIME PRN anxiety #14 11/25/22 tabs cyclobenzaprine 5 mg tablet 5 mg PO TID PRN muscle spasm #12 05/13/23 tabs lidocaine 5 % topical patch 1 patch topical DAILY #15 ea 05/13/23 ibuprofen 600 mg tablet 600 mg PO Q6H PRN pain #20 tabs 09/18/23 prednisone 20 mg tablet 40 mg (2 x 20 mg) PO DAILY 2 days 09/18/23 #4 tabs acetaminophen 500 mg tablet 500 mg PO Q6H PRN fever or pain 06/14/24 #20 tabs ibuprofen 600 mg tablet 600 mg PO TID PRN pain #20 tabs 06/14/24 magnesium oxide 500 mg PO DAILY headaches #30 tabs 07/05/24 ondansetron 4 mg disintegrating 4 mg PO TID PRN nausea and 07/05/24 tablet vomiting 2 weeks #30 tabs propranolol 60 mg capsule,24 60 mg PO BEDTIME #20 caps 07/05/24 hr,extended release riboflavin (vitamin B2) 400 mg 400 mg PO DAILY headaches #30 tabs 07/05/24 tablet sumatriptan succinate 50 mg tablet See Rx Instructions PO .COMPLEX 07/05/24 #10 tabs Allergies Allergy/AdvReac Type Severity Reaction Status Date / Time aspirin [ASA] Allergy Hives Verified 07/04/24 19:24 Review of Systems Review of Systems: Yes all other systems are reviewed and are negative Constitutional: Constitutional: Denies fatigue, Denies fever(s) and Reports headache(s) Eyes: Eyes: Denies change in vision ENT: Reports dizziness and Reports headache(s) Cardiovascular: Cardiovascular: Denies chest pain and Denies dyspnea Respiratory: Respiratory: Denies dyspnea Gastrointestinal: Gastrointestinal: Denies abdominal pain, Reports nausea and Denies vomiting Neurologic: Reports dizziness and Reports headache(s) Endocrine: Endocrine: Denies fatigue PMFSH Past Medical History Attestation statement: The following information was validated with the patient. Social History Social History Substance Use Type: Marijuana Physical Exam ED Vital Signs: Vital Signs - 24 hr 07/05/24 01:34 07/05/24 03:15 Temperature 97.8 F 97.8 F Pulse Rate 62 62 Respiratory Rate 14 14 Blood Pressure 117/74 117/74 Pulse Oximetry 98 98 Oxygen Delivery Method Room Air Room Air BMI result Body Mass Index 42.6 Const Other: Alert Orientation/consciousness: patient oriented x3 Resp Effort & Inspection: normal respiratory effort Cardio Other: Normal peripheral perfusion Skin Other: Warm dry no rash Neuro General: patient oriented x3, gait normal, no focal motor deficits and CN's II-XI intact bilaterally Psych Other: Cooperative Course Course Course Narrative: RME: 34-year-old female presents to the ED for headache since June 14 with photophobia lethargy. Patient states large amount of black ice fell onto her head from 12 ft at the job that has had a concussion like symptoms ever since. Patient was not able to follow-up due to failed insurance claim. Negative for any neuro deficits. Labs images ordered. Reevaluation(s) Reevaluation #1: Headache improved after migraine cocktail Medications Administered Discontinued Medications Generic Name Dose Route Start Last Admin Trade Name Freq PRN Reason Stop Dose Admin Diphenhydramine HCl 25 mg 07/04/24 23:37 07/04/24 23:55 Diphenhydramine Hcl 50 Mg/Ml Vial IVPUSH 07/04/24 23:38 25 mg ONCE ONE Administration Sodium Chloride 500 mls @ 500 mls/hr 07/04/24 23:37 07/05/24 01:13 Ns IV 07/05/24 00:36 Infused .Q1H ONE Infusion Ketorolac Tromethamine 15 mg 07/04/24 23:37 07/04/24 23:55 Ketorolac Tromethamine 15 Mg/Ml Vial IVPUSH 07/04/24 23:38 15 mg ONCE ONE Administration Lorazepam 1 mg 07/04/24 23:37 07/04/24 23:54 Lorazepam 2 Mg/Ml Vial IVPUSH 07/04/24 23:38 1 mg ONCE ONE Administration Prochlorperazine Edisylate 10 mg 07/04/24 23:37 07/04/24 23:55 Prochlorperazine Edisylate 10 Mg/2 Ml Vial IVPUSH 07/04/24 23:38 10 mg ONCE ONE Administration Medical Decision Making Medical Decision Making MDM Narrative: 34-year-old female with a history of morbid obesity, presents after head injury that occurred June 13 while at work. Patient states ice dislodged from the roof striking her in the head, from a 15 ft drop. Patient has been diagnosed with a concussion. Patient states she has been having daily headaches since the incident. Associated nausea, dizziness, phonophobia and photophobia. Patient has been using [id number] Tylenol which briefly helps her discomfort, however the headaches return. Problem: Known concussion History: Per patient I have considered the following differential diagnoses: Migraine, tension headache, postconcussive syndrome, intracranial hemorrhage Plan: Screening labs including CT scans of the brain and neck were ordered from triage, everything is negative as expected. The patient likely has postconcussive syndrome, with a headache that has migraine features. We will give a migraine cocktail. I have independently reviewed the following tests: Labs: No leukocytosis, not anemic, no electrolyte abnormality noted CT brain: MPRESSION: No acute intracranial findings. CT cervical spine:FINDINGS: No acute fracture or malalignment. Soft tissues are normal. Lung apices are clear. IMPRESSION: No acute findings. Lab Data 07/04/24 19:36 07/04/24 19:36 Labs: Lab Results 07/04/24 Range/Units 19:36 WBC 7.3 (4.8-10.8) X10*3/uL RBC 4.38 (4.20-5.50) X10*6/uL Hgb 13.4 (12.0-16.0) g/dl Hct 39.1 (37.0-47.0) % MCV 89.3 (80.0-98.0) fL MCH 30.6 (27.0-33.0) pg MCHC 34.3 (31.0-35.0) g/dl RDW 11.9 (11.0-16.0) % Plt Count 284 (160-400) X10*3/uL MPV 8.7 L (9.4-12.3) fL Immature Gran % (Auto) 0.1 (0.0-0.4) % Neut % (Auto) 47.6 (45-73) % Lymph % (Auto) 41.7 H (20-40) % [place] % (Auto) 8.1 (2-11) % Eos % (Auto) 2.1 (0-4) % Baso % (Auto) 0.4 (0-2) % Lymph # (Auto) 3.1 (1.2-4.9) X10*3/uL [place] # (Auto) 0.6 (0.1-1.2) X10*3/uL Eos # (Auto) 0.2 (0.0-0.4) X10*3/uL Baso # (Auto) 0.0 (0.0-0.2) X10*3/uL Abs Immat Gran (auto) 0.01 (0.00-0.03) X10*3/uL Absolute Neuts (auto) 3.5 (2.0-8.3) x10*3/uL Absolute Nucleated RBC 0.000 (0.0-0.012) X10*3/uL Nucleated RBC % (auto) 0.0 (0.0-0.2) /100WBC Sodium 139 (135-145) mmol/L Potassium 3.6 (3.3-5.1) mmol/L Chloride 108 (96-108) mmol/L Carbon Dioxide 23 (22-29) mmol/L Anion Gap 12 (12-20) BUN 8 L (9-16) mg/dL Creatinine 0.86 (0.5-1.4) mg/dL Estim Creat Clear Calc 122.5 Estimated GFR > 60 Random Glucose 124 H (60-115) mg/dL Calcium 8.9 D (8.4-10.2) mg/dL Total Bilirubin 0.3 (0.0-1.0) mg/dL AST 20 (5-31) U/L ALT 27 (0-31) U/L Alkaline Phosphatase 66 (39-117) U/L Troponin I High Sens < 2.7 (<3.5-17.0) ng/L Total Protein 7.7 (6.5-8.0) g/dL Albumin 3.9 (3.5-5.0) g/dL Beta HCG, Quant < 2 mIU/mL Influenza Type A (PCR) NEGATIVE (Negative) Influenza Type B (PCR) NEGATIVE (Negative) RSV RNA Qual (PCR) NEGATIVE (Negative) SARS-CoV-2 RNA (RT-PCR) NEGATIVE (Negative) Discharge Plan Discharge Clinical Impression: Postconcussion syndrome, Headache Patient Disposition: Home, Self-Care Instructions: Post Concussion Syndrome (ED), General Headache (ED) Additional Instructions: You were treated for a migraine type headache that is likely associated with postconcussive syndrome. See home care instructions. All of your screening labs were normal, CT scans of the brain and cervical spine were obtained they were negative as well. Continue to follow up with your primary care provider. Your primary care provider can refer you to a neurologist for your ongoing headaches. Prescriptions: No Action lorazepam [Ativan] 0.5 mg tablet 0.5 mg PO BEDTIME PRN (Reason: anxiety) Qty: 14 0RF cyclobenzaprine 5 mg tablet 5 mg PO TID PRN (Reason: muscle spasm) Qty: 12 0RF lidocaine 5 % adhesive patch,medicated 1 patch topical DAILY Qty: 15 0RF Rx Instructions: leave on most painful area for up to 12 hrs ibuprofen 600 mg tablet 600 mg PO TID PRN (Reason: pain) Qty: 20 0RF acetaminophen 500 mg tablet 500 mg PO Q6H PRN (Reason: fever or pain) Qty: 20 0RF prednisone 20 mg tablet 40 mg PO DAILY 2 Days Qty: 4 0RF ibuprofen 600 mg tablet 600 mg PO Q6H PRN (Reason: pain) Qty: 20 0RF ondansetron 4 mg tablet,disintegrating 4 mg PO TID PRN (Reason: nausea and vomiting) 14 Days Qty: 30 2RF propranolol 60 mg capsule,extended release 24 hr 60 mg PO BEDTIME Qty: 20 0RF sumatriptan succinate 50 mg tablet See Rx Instructions PO .COMPLEX Qty: 10 0RF Rx Instructions: take 1 tab at onset of headache; if no relief may repeat 1 tab after at least 2 hrs; max = 4 tabs/24 hr PO magnesium oxide 500 mg magnesium tablet 500 mg PO DAILY Qty: 30 0RF riboflavin (vitamin B2) 400 mg tablet 400 mg PO DAILY Qty: 30 2RF Interventions: ED Discharge Assessment Last Done: 07/05/24 03:15 Discharge Date/Time: 07/05/24 03:27 Print Language: Kinyarwanda
[2024-07-04 19:41] LABS: MANUAL DIFF FLAG NO
[2024-07-04 19:42] LABS: Basophils Percent Auto 0.4 % (0-2); Eosinophils Absolute Auto 0.2 X10*3/uL (0.0-0.4); Eosinophils Percent Auto 2.1 % (0-4); Hematocrit 39.1 % (37.0-47.0); Hemoglobin 13.4 g/dl (12.0-16.0); Imm Gran Abs Auto 0.01 X10*3/uL (0.00-0.03); Imm Gran Pct Auto 0.1 % (0.0-0.4); Lymphocytes Absolute Auto 3.1 X10*3/uL (1.2-4.9); Lymphocytes Percent Auto 41.7 % (20-40); Mean Corpuscular HGB Conc 34.3 g/dl (31.0-35.0); Mean Corpuscular Hemoglobin 30.6 pg (27.0-33.0); Mean Corpuscular Volume 89.3 fL (80.0-98.0); Mean Platelet Volume 8.7 fL (9.4-12.3); Monocytes Absolute Auto 0.6 X10*3/uL (0.1-1.2); Monocytes Percent Auto 8.1 % (2-11); Neutrophils Absolute Auto 3.5 x10*3/uL (2.0-8.3); Neutrophils Percent Auto 47.6 % (45-73); Platelet Count 284 X10*3/uL (160-400); Red Blood Count 4.38 X10*6/uL (4.20-5.50); Red Cell Distribution Width 11.9 % (11.0-16.0); White Blood Count 7.3 X10*3/uL (4.8-10.8)
[2024-07-04 20:09] LABS: Alanine Aminotransferase 27 U/L (0-31); Albumin Level 3.9 g/dL (3.5-5.0); Alkaline Phosphatase 66 U/L (39-117); Anion Gap 12 (12-20); Aspartate Amino Transferase 20 U/L (5-31); Bilirubin Total 0.3 mg/dL (0.0-1.0); Blood Urea Nitrogen 8 mg/dL (9-16); Calcium 8.9 mg/dL (8.4-10.2); Carbon Dioxide 23 mmol/L (22-29); Chloride 108 mmol/L (96-108); Creatinine Clr Calc Pharmacy 122.5; Estimated Glomerular Filt Rate > 60; Glucose Random 124 mg/dL (60-115); HCG Quantitative < 2 mIU/mL; Potassium 3.6 mmol/L (3.3-5.1); Sodium 139 mmol/L (135-145); Total Protein 7.7 g/dL (6.5-8.0); Troponin-I High Sensitivity < 2.7 ng/L (<3.5-17.0)
[2024-07-04 20:17] LABS: Influenza A PCR NEGATIVE (Negative); Influenza B PCR NEGATIVE (Negative); Resp Syncy Virus RNA Qual PCR NEGATIVE (Negative); SARS COV2 PCR INHOUSE NEGATIVE (Negative)
[2024-07-04] MEDS: LORazepam 2 MG/ML VIAL 1 MG IVPUSH (23:54)
[2024-07-04] MEDS: Ketorolac Tromethamine 15 MG/ML VIAL IVPUSH (23:55)
[2024-07-04] MEDS: Prochlorperazine Edisylate 10 MG/2 ML VIAL IVPUSH (23:55)
[2024-07-04] MEDS: 0.9 % Sodium Chloride 500 ML IV (23:55)
[2024-07-04] MEDS: diphenhydrAMINE HCL 50 MG/ML VIAL 25 MG IVPUSH (23:55)
--- NOTE | 2024-07-05 01:14 | PC.NURSE ---
pt reports relief of pain and migraine symptoms, just feels tired . JANEY Scales aware. iv fluids complete.
[2024-07-05 01:34] VITALS: BP 117/74; PULSE 62; RESP 14; TEMP 36.6; O2SAT 98
[2024-07-05 03:15] VITALS: BP 117/74; PULSE 62; RESP 14; TEMP 36.6; O2SAT 98
== END 2024-07-05 03:27 | disposition home or self-care (01) ==
PROVIDERS: Physician Assistant; Emergency Provider Internal Medicine
DX: F07.81 Postconcussional syndrome (principal); R51.9 Headache, unspecified; R07.89 Other chest pain; R00.1 Bradycardia, unspecified; R11.0 Nausea; M54.2 Cervicalgia; R42 Dizziness and giddiness; H53.143 Visual discomfort, bilateral; Z03.818 Encounter for observation for suspected exposure to other biological agents ruled out; Z83.438 Family history of other disorder of lipoprotein metabolism and other lipidemia
CPT/HCPCS: 0241U; 36415; 70450; 71045; 72125; 80053; 84484; 84702; 85025; 93005; 96361; 96374; 96375; 99284; J0737; J1200; J1885; J2060

== ENCOUNTER → 2024-07-04 19:25 | Outpatient (BNV) | payer OTHER, SELFPAY | PROVIDERS: Emergency Provider Internal Medicine; Visit Provider Internal Medicine | DX: R00.1 Bradycardia, unspecified (principal) | CPT/HCPCS: 93010 ==

== ENCOUNTER → 2024-07-04 19:48 | Outpatient (BNV) | payer OTHER, SELFPAY | PROVIDERS: Visit Provider Radiology Diagnostic Radiology | DX: S09.90XA Unspecified injury of head, initial encounter (principal); R07.9 Chest pain, unspecified | CPT/HCPCS: 70450; 71045; 72125 ==

== ENCOUNTER → 2024-07-05 14:30 | Outpatient (BNVA) | payer OTHER, SELFPAY | PROVIDERS: Visit Provider Physician Assistant Medical | DX: F07.81 Postconcussional syndrome (principal); S16.1XXA Strain of muscle, fascia and tendon at neck level, initial encounter; W20.8XXA Other cause of strike by thrown, projected or falling object, initial encounter | CPT/HCPCS: 99202 ==

== ENCOUNTER 2024-07-12 18:46 | Outpatient (REF) | payer OTHER, SELFPAY ==
--- NOTE | ~2024-07-12 | MR_ITS ---
EXAMINATION: MR BRAIN WITHOUT IV CONTRAST HISTORY: HEADACHES, NAUSEA, TROUBLE CONCENTRATING TECHNIQUE: Sagittal T1, and axial T1, FLAIR, T2, gradient echo, and diffusion weighted MR images of the brain were obtained. COMPARISON: Correlation is made with an unenhanced head CT dated 07/04/2024. FINDINGS: The brain parenchyma is unremarkable, demonstrating normal good/white differentiation. No foci of abnormal signal intensity are identified. The ventricular system is normal in size and configuration. There is no mass effect or midline shift. No intra or extra-axial fluid collections are identified. There are no foci of restricted diffusion. Normal vascular flow voids are noted in the basilar and carotid arteries. The visualized paranasal sinuses are clear. MR/MR head/brain wo con IMPRESSION: Unremarkable MRI of the brain without contrast. Electronically signed by: Vitaliy Knapp MD 07/13/2024 07:30 AM EDT
== END 2024-07-12 18:47 | disposition home or self-care (01) ==
LOC: HO.MRI 18:46
PROVIDERS: Visit Provider Internal Medicine
DX: R51.9 Headache, unspecified (principal)
CPT/HCPCS: 70551

== ENCOUNTER → 2024-07-12 18:55 | Outpatient (BNV) | payer OTHER, SELFPAY | PROVIDERS: Visit Provider Radiology Diagnostic Radiology | DX: R51.9 Headache, unspecified (principal); R11.0 Nausea | CPT/HCPCS: 70551 ==

== ENCOUNTER → 2024-07-19 09:47 | Outpatient (BNVA) | payer OTHER, SELFPAY | PROVIDERS: Visit Provider Physician Assistant Medical | DX: F07.81 Postconcussional syndrome (principal); S16.1XXD Strain of muscle, fascia and tendon at neck level, subsequent encounter; W22.8XXD Striking against or struck by other objects, subsequent encounter | CPT/HCPCS: 99213 ==

== ENCOUNTER 2024-07-27 13:19 | Emergency (ER) | payer OTHER, SELFPAY ==
--- NOTE | ~2024-07-27 | CT_ITS ---
EXAMINATION: CT HEAD WITHOUT IV CONTRAST HISTORY: headache. TECHNIQUE: Unenhanced helical CT of the head was performed per standard departmental protocol. Coronal and sagittal reformats of the head were also evaluated. One or more of the following techniques was used for dose reduction: Automated exposure control, adjustment of the mA and/or kV according to patient size, use of iterative reconstruction technique. DLP: 659 mGy-cm COMPARISON: Comparison is made with the prior examination dated 07/04/2024. FINDINGS: BRAIN: The brain parenchyma is unremarkable. There is normal good/white differentiation. The ventricular system is normal in size and configuration. There is no mass effect or midline shift. No intra- or extra-axial fluid collections are identified. SINUSES: The visualized paranasal sinuses are clear. The mastoid air cells and middle ear cavities are well pneumatized. ORBITS: The visualized orbits are unremarkable. BONES/SOFT TISSUES: The extracranial soft tissues are unremarkable. The calvarium is intact. No suspicious lytic or sclerotic lesions. CT/CT head/brain wo IV con IMPRESSION: No acute intracranial abnormality. Electronically signed by: Vitaliy Knapp MD 07/27/2024 03:48 PM EDT
[2024-07-27 13:43] VITALS: BP 116/70; PULSE 55; RESP 16; TEMP 37; O2SAT 98; BMI 42.0
--- NOTE | 2024-07-27 13:44 | ED_ITS ---
HPI - General Adult General Chief complaint: Headache Stated complaint: Seizure earlier? Time Seen by Provider: 07/27/24 18:00 Source: patient and family Mode of arrival: ambulatory Limitations: no limitations History of Present Illness ED Provider: JOSE G WATTERS narrative: 34 yo female who suffered a sig head injury back in June now in post concussive protocol - sumatriptan, riboflavin, propanolol, magnesium who was found by her boyfriend having possible seizure in her sleep - no incontinence or sig tongue biting I can see. No recent new head trauma. No fevers. He found her shaking then upon waking she seemed slow to respond and then started to shake all over again but she was awake and talking to him. No known prior seizures. She is back to baseline now. MD complaint: possible seizure Onset (ago): hour(s) (several ) Location: head Radiation: non-radiation Relieving factors: none Exacerbating factors: none Associated symptoms: denies other symptoms Treatments prior to arrival: none Related Data Previous Rx's ?Medication ?Instructions ?Recorded lorazepam 0.5 mg tablet (Ativan) 0.5 mg PO BEDTIME PRN anxiety #14 11/25/22 tabs cyclobenzaprine 5 mg tablet 5 mg PO TID PRN muscle spasm #12 05/13/23 tabs lidocaine 5 % topical patch 1 patch topical DAILY #15 ea 05/13/23 ibuprofen 600 mg tablet 600 mg PO Q6H PRN pain #20 tabs 09/18/23 prednisone 20 mg tablet 40 mg (2 x 20 mg) PO DAILY 2 days 09/18/23 #4 tabs acetaminophen 500 mg tablet 500 mg PO Q6H PRN fever or pain 06/14/24 #20 tabs ibuprofen 600 mg tablet 600 mg PO TID PRN pain #20 tabs 06/14/24 magnesium oxide 500 mg PO DAILY headaches #30 tabs 07/05/24 ondansetron 4 mg disintegrating 4 mg PO TID PRN nausea and 07/05/24 tablet vomiting 2 weeks #30 tabs riboflavin (vitamin B2) 400 mg 400 mg PO DAILY headaches #30 tabs 07/05/24 tablet propranolol 120 mg capsule,24 120 mg PO BEDTIME #20 caps 07/19/24 hr,extended release sumatriptan succinate 50 mg tablet See Rx Instructions PO .COMPLEX 07/19/24 #14 tabs Allergies Allergy/AdvReac Type Severity Reaction Status Date / Time aspirin [ASA] Allergy Hives Verified 07/27/24 13:53 Review of Systems 2 Review of Systems: Constitutional : No Fever, No Chills, No Fatigue ENT/Mouth : No sore throat, No Rhinorrhea Eyes: No Eye Pain, No Swelling, No Redness Cardiovascular : No Chest Pain, No SOB, No Dyspnea on Exertion Respiratory : No Cough, No Sputum Gastrointestinal : No Nausea, No Vomiting, No Diarrhea, No abdominal Pain Genitourinary : No Dysuria, No Urinary Frequency, No Hematuria, Musculoskeletal : No joint pain, No Myalgias, No Joint Swelling Skin : No Skin Lesions, No rash Neuro : No Weakness, No Numbness, No Dizziness, positive Headache Psych : No Anxiety/Panic, No Depression All other systems reviewed and are negative [facility] Past Medical History Attestation statement: The following information was validated with the patient. Source: old records reviewed Medical History (Updated 07/27/24 @ 18:37 by Lizeth Goode DO) Postconcussion syndrome Social History Social History (Updated 07/27/24 @ 18:29 by Lizeth Goode DO) Patient Tobacco Use Status: Never used Tobacco Substance Use Type: Marijuana Physical Exam ED Vital Signs: Vital Signs - 24 hr 07/27/24 13:43 07/27/24 14:43 Temperature 98.6 F Pulse Rate 55 58 Respiratory Rate 16 18 Blood Pressure 116/70 127/94 H Pulse Oximetry 98 99 Oxygen Delivery Method Room Air Room Air BMI result Body Mass Index 42.0 Appearance: Alert. Oriented X3. No acute distress. Eyes: Pupils equal, round and reactive to light. ENT: Pharynx normal. Sunglasses on Neck: Normal inspection. Neck supple. CVS: Normal heart rate and rhythm. Pulses normal. Respiratory: No respiratory distress. Breath sounds normal. Abdomen: Soft and nontender. Skin: Skin warm and dry. Normal skin color. Normal skin turgor. Extremities: No lower extremity edema. No calf ttp Neuro: Oriented X 3. No motor deficit. No sensory deficit. CN2-12 intact Course Course Course Narrative: This is an RME: Additional HPI, ROS, PE not included below will be deferred to primary provider. RME assessment and note performed by: Germaine Causey PA-C This is a 32-eneh-psj-female who presents to the ER with complaints of ?seizure. Partner reports that approximately at 12, patient's body was twisting and turning in bed. Was not responsive to him. Patient did not have any urinary or bowel incontinence. Partner reports that in May she was struck by ice in the head and was seen on 06/14 for this, unremarkable head CT. Was seen again in June for recurrent headaches, negative scan here. Reports that she has daily headaches, but states that this pain is different in her head now. She is neurologically intact, no gross focal deficits on examination. Will repeat head CT due to patient reporting more sharp pain in her head. Plan: Labs, CT head, further ER eval needed. Medications Administered Discontinued Medications Generic Name Dose Route Start Last Admin Trade Name Freq PRN Reason Stop Dose Admin Acetaminophen 975 mg 07/27/24 16:58 07/27/24 17:00 Acetaminophen 325 Mg Tablet PO 07/27/24 16:59 975 mg ONCE ONE Administration Medical Decision Making Medical Decision Making [facility] Narrative: 34 yo female who suffered a sig head injury back in June now here with c/o possible seizure episode at home though second seizure shaking and talking seems atypical - at this time labs, EKG, CT head. She has some bradycardia but normal BP will hold then halve her propanolol Differential Diagnosis Differential Diagnoses: The differential diagnosis associated with the presentation includes possible seizure, non epileptic seizure Admission/Observation Consideration of admission/observation: Escalation of care including admission/observation considered work up negative has low HR but hx of HR In 50s likely due to propanolol BP stable has neurology appointment will hold propanolol and have her cut it in half until she sees her doctor Lab Data [facility] Lab Attestation statement: I reviewed the patient's lab results. 07/27/24 14:14 07/27/24 14:14 Labs: Lab Results 07/27/24 07/27/24 Range/Units 14:14 14:42 WBC 7.3 (4.8-10.8) X10*3/uL RBC 4.37 (4.20-5.50) X10*6/uL Hgb 13.3 (12.0-16.0) g/dl Hct 39.5 (37.0-47.0) % MCV 90.4 (80.0-98.0) fL MCH 30.4 (27.0-33.0) pg MCHC 33.7 (31.0-35.0) g/dl RDW 12.1 (11.0-16.0) % Plt Count 265 (160-400) X10*3/uL MPV 9.0 L (9.4-12.3) fL Immature Gran % (Auto) 0.1 (0.0-0.4) % Neut % (Auto) 55.6 (45-73) % Lymph % (Auto) 34.9 (20-40) % [place] % (Auto) 6.5 (2-11) % Eos % (Auto) 2.5 (0-4) % Baso % (Auto) 0.4 (0-2) % Lymph # (Auto) 2.5 (1.2-4.9) X10*3/uL [place] # (Auto) 0.5 (0.1-1.2) X10*3/uL Eos # (Auto) 0.2 (0.0-0.4) X10*3/uL Baso # (Auto) 0.0 (0.0-0.2) X10*3/uL Abs Immat Gran (auto) 0.01 (0.00-0.03) X10*3/uL Absolute Neuts (auto) 4.1 (2.0-8.3) x10*3/uL Absolute Nucleated RBC 0.000 (0.0-0.012) X10*3/uL Nucleated RBC % (auto) 0.0 (0.0-0.2) /100WBC Sodium 138 (135-145) mmol/L Potassium 4.1 (3.3-5.1) mmol/L Chloride 110 H (96-108) mmol/L Carbon Dioxide 26 (22-29) mmol/L Anion Gap 6 L (12-20) BUN 11 (9-16) mg/dL Creatinine 0.87 (0.5-1.4) mg/dL Estim Creat Clear Calc 120.1 Estimated GFR > 60 POC Glucose 73 (60-115) mg/dL Random Glucose 82 (60-115) mg/dL Calcium 9.1 (8.4-10.2) mg/dL Magnesium 1.9 (1.6-2.6) mg/dL Total Bilirubin 0.3 (0.0-1.0) mg/dL Direct Bilirubin 0.1 (0.0-0.5) mg/dL AST 23 (5-31) U/L ALT 23 (0-31) U/L Alkaline Phosphatase 73 (39-117) U/L Total Protein 6.8 (6.5-8.0) g/dL Albumin 3.7 (3.5-5.0) g/dL Beta HCG, Quant < 2 mIU/mL Independent Interpretation I performed an independent interpretation of an: EKG and CT Scan (no ICH) Interpretation: Rate: 47 Rhythm: sinus bradycardia [place]: normal Normal P waves. Normal NESS. Normal QRS complex. ST T wave : normal n ISAEL, inverted t wave III qTC: 380 prior studies: no acute ischemia The study has been interpreted contemporaneously by me. . Radiology Impression Discussion of test interpretation with radiology: I have reviewed the radiologist's reading. Independent Historian Clinical information obtained from an independent historian. History obtained from or confirmed by: Spouse External Record Review External record reviewed: Outpatient record Discharge Plan Discharge Clinical Impression: Observed seizure-like activity Instructions: New-Onset Seizure in Adults (ED) Additional Instructions: your labs and CT head were normal it is not clear if you had a seizure please follow up with your neurologist as planned 08/03 in the meantime do not swim alone, cook over an open flame, or drive return for any worsening symptoms or concerns avoid alcohol and flashing lights your EKG showed a slow heart rate this is likely caused by your propanolol - P LEASE HOLD YOUR DOSE TONIGHT AND TAKE ONLY HALF TOMORROW and moving forward take only half the dose Prescriptions: No Action lorazepam [Ativan] 0.5 mg tablet 0.5 mg PO BEDTIME PRN (Reason: anxiety) Qty: 14 0RF cyclobenzaprine 5 mg tablet 5 mg PO TID PRN (Reason: muscle spasm) Qty: 12 0RF lidocaine 5 % adhesive patch,medicated 1 patch topical DAILY Qty: 15 0RF Rx Instructions: leave on most painful area for up to 12 hrs ibuprofen 600 mg tablet 600 mg PO TID PRN (Reason: pain) Qty: 20 0RF acetaminophen 500 mg tablet 500 mg PO Q6H PRN (Reason: fever or pain) Qty: 20 0RF prednisone 20 mg tablet 40 mg PO DAILY 2 Days Qty: 4 0RF ibuprofen 600 mg tablet 600 mg PO Q6H PRN (Reason: pain) Qty: 20 0RF ondansetron 4 mg tablet,disintegrating 4 mg PO TID PRN (Reason: nausea and vomiting) 14 Days Qty: 30 2RF magnesium oxide 500 mg magnesium tablet 500 mg PO DAILY Qty: 30 0RF riboflavin (vitamin B2) 400 mg tablet 400 mg PO DAILY Qty: 30 2RF propranolol 120 mg capsule,extended release 24hr 120 mg PO BEDTIME Qty: 20 0RF sumatriptan succinate 50 mg tablet See Rx Instructions PO .COMPLEX Qty: 14 0RF Rx Instructions: take 1 tab at onset of headache; if no relief may repeat 1 tab after at least 2 hrs; max = 4 tabs/24 hr PO Print Language: Hungarian
[2024-07-27 14:21] LABS: MANUAL DIFF FLAG NO
[2024-07-27 14:23] LABS: Basophils Percent Auto 0.4 % (0-2); Eosinophils Absolute Auto 0.2 X10*3/uL (0.0-0.4); Eosinophils Percent Auto 2.5 % (0-4); Hematocrit 39.5 % (37.0-47.0); Hemoglobin 13.3 g/dl (12.0-16.0); Imm Gran Abs Auto 0.01 X10*3/uL (0.00-0.03); Imm Gran Pct Auto 0.1 % (0.0-0.4); Lymphocytes Absolute Auto 2.5 X10*3/uL (1.2-4.9); Lymphocytes Percent Auto 34.9 % (20-40); Mean Corpuscular HGB Conc 33.7 g/dl (31.0-35.0); Mean Corpuscular Hemoglobin 30.4 pg (27.0-33.0); Mean Corpuscular Volume 90.4 fL (80.0-98.0); Monocytes Absolute Auto 0.5 X10*3/uL (0.1-1.2); Monocytes Percent Auto 6.5 % (2-11); Neutrophils Absolute Auto 4.1 x10*3/uL (2.0-8.3); Neutrophils Percent Auto 55.6 % (45-73); Platelet Count 265 X10*3/uL (160-400); Red Blood Count 4.37 X10*6/uL (4.20-5.50); Red Cell Distribution Width 12.1 % (11.0-16.0); White Blood Count 7.3 X10*3/uL (4.8-10.8)
[2024-07-27 14:43] VITALS: BP 127/94; PULSE 58; RESP 18; O2SAT 99
[2024-07-27 14:44] LABS: Alanine Aminotransferase 23 U/L (0-31); Albumin Level 3.7 g/dL (3.5-5.0); Alkaline Phosphatase 73 U/L (39-117); Anion Gap 6 (12-20); Aspartate Amino Transferase 23 U/L (5-31); Bilirubin Direct 0.1 mg/dL (0.0-0.5); Bilirubin Total 0.3 mg/dL (0.0-1.0); Blood Urea Nitrogen 11 mg/dL (9-16); Calcium 9.1 mg/dL (8.4-10.2); Carbon Dioxide 26 mmol/L (22-29); Chloride 110 mmol/L (96-108); Creatinine Clr Calc Pharmacy 120.1; Estimated Glomerular Filt Rate > 60; Glucose Random 82 mg/dL (60-115); Magnesium 1.9 mg/dL (1.6-2.6); Potassium 4.1 mmol/L (3.3-5.1); Sodium 138 mmol/L (135-145); Total Protein 6.8 g/dL (6.5-8.0)
[2024-07-27 14:47] LABS: Glucose, Whole Blood 73 mg/dL (60-115)
[2024-07-27] MEDS: Acetaminophen 325 MG TABLET 975 MG PO (17:00)
[2024-07-27 17:59] LABS: HCG Quantitative < 2 mIU/mL
--- NOTE | 2024-07-27 18:00 | ECG_ITS ---
Test Reason : headache Blood Pressure : */* mmHG Vent. Rate : 47 BPM Atrial Rate : 47 BPM P-R Int : 136 ms QRS Dur : 74 ms QT Int : 430 ms P-R-T Axes : 70 57 19 degrees QTcB Int : 380 ms Sinus bradycardia Otherwise normal ECG When compared with ECG of 04-Jul-2024 19:29, No significant change was found Referred By: Lizeth Goode Electronically Signed By: ANNE RIOS
[2024-07-27 19:07] VITALS: BP 127/94; PULSE 58; RESP 18; TEMP 36.7; O2SAT 99
== END 2024-07-27 19:07 | disposition home or self-care (01) ==
PROVIDERS: Physician Assistant Medical; Emergency Provider Emergency Medicine
DX: R56.9 Unspecified convulsions (principal); Z79.899 Other long term (current) drug therapy
CPT/HCPCS: 36415; 70450; 80048; 80076; 82947; 83735; 84702; 85025; 93005; 99284

== ENCOUNTER → 2024-07-27 13:50 | Outpatient (BNV) | payer OTHER, SELFPAY | PROVIDERS: Visit Provider Radiology Diagnostic Radiology | DX: R51.9 Headache, unspecified (principal) | CPT/HCPCS: 70450 ==

== ENCOUNTER → 2024-07-27 18:00 | Outpatient (BNV) | payer OTHER, SELFPAY | PROVIDERS: Emergency Provider Emergency Medicine; Visit Provider Internal Medicine | DX: R00.1 Bradycardia, unspecified (principal) | CPT/HCPCS: 93010 ==

== ENCOUNTER 2024-07-29 15:54 | Emergency (ER) | payer OTHER, SELFPAY ==
[2024-07-29 15:55] VITALS: BP 121/82; PULSE 52; RESP 20; TEMP 36.4; O2SAT 97; BMI 42.0
--- NOTE | 2024-07-29 15:56 | ED_ITS ---
HPI - General Adult General Chief complaint: General Medical Stated complaint: ? seizure like activity,slurred speech Time Seen by Provider: 07/29/24 20:13 Source: patient and other (Significant other, [place]) Mode of arrival: ambulatory Limitations: no limitations History of Present Illness ED Provider: Dr. Scott Helm HPI narrative: 34-year-old female with a history of hypertension, depression, anxiety who presents emergency department for evaluation of altered mental status and possible seizure. The patient states that she got into an argument with her boyfriend regarding the rent and not having enough money to pay the rent. She states that a during this argument she started to feel weird. She states that her hands, feet and lips became numb. She states that her tongue felt thick and she was having difficulty talking. She then felt lightheaded as if she was going to pass out. Her vision became fuzzy. She then developed a cramping sensation in her hands and feet. Her boyfriend states that the patient looks like she was going to fall so he grabbed her and dragged her towards the bed. They both then fell into the bed. The patient then had a shaking episode that lasted a proximally 1 minute. She did appear to be confused after the episode but is now back to her baseline. Patient was seen in the emergency department on 06/14/2024 after a heavy piece of ice fell off a roof and struck her on the head. This was a work-related injury. Since that time, the patient has been treated for postconcussion syndrome and headaches by our occupational health clinic, [facility]. Patient states is scheduled to see a neurologist next week. The patient was also seen seen in the emergency department on 07/27/2024 for shaking episode which she was felt to be atypical for a seizure and she was not started on anti seizure medications. Patient states that she has been under increased stress, she has been feeling anxious and depressed. Related Data Previous Rx's ?Medication ?Instructions ?Recorded lorazepam 0.5 mg tablet (Ativan) 0.5 mg PO BEDTIME PRN anxiety #14 11/25/22 tabs cyclobenzaprine 5 mg tablet 5 mg PO TID PRN muscle spasm #12 05/13/23 tabs lidocaine 5 % topical patch 1 patch topical DAILY #15 ea 05/13/23 ibuprofen 600 mg tablet 600 mg PO Q6H PRN pain #20 tabs 09/18/23 prednisone 20 mg tablet 40 mg (2 x 20 mg) PO DAILY 2 days 09/18/23 #4 tabs acetaminophen 500 mg tablet 500 mg PO Q6H PRN fever or pain 06/14/24 #20 tabs ibuprofen 600 mg tablet 600 mg PO TID PRN pain #20 tabs 06/14/24 magnesium oxide 500 mg PO DAILY headaches #30 tabs 07/05/24 ondansetron 4 mg disintegrating 4 mg PO TID PRN nausea and 07/05/24 tablet vomiting 2 weeks #30 tabs riboflavin (vitamin B2) 400 mg 400 mg PO DAILY headaches #30 tabs 07/05/24 tablet propranolol 120 mg capsule,24 120 mg PO BEDTIME #20 caps 07/19/24 hr,extended release sumatriptan succinate 50 mg tablet See Rx Instructions PO .COMPLEX 07/19/24 #14 tabs lorazepam 1 mg tablet (Ativan) 1 mg PO TID PRN anxiety #15 tabs 07/29/24 Allergies Allergy/AdvReac Type Severity Reaction Status Date / Time aspirin [ASA] Allergy Hives Verified 07/29/24 16:01 [facility] Past Medical History Medical History (Updated 07/30/24 @ 00:00 by Nely Fernando) Postconcussion syndrome Social History Social History (Updated 07/27/24 @ 18:29 by Lizeth Goode DO) Alcohol intake: current Alcohol intake frequency: holidays/special occasions only Alcohol type: wine Patient Tobacco Use Status: Never used Tobacco Substance Use Type: Marijuana Physical Exam ED Vital Signs: Vital Signs - 24 hr 07/29/24 20:58 07/29/24 21:39 Temperature 98.5 F 98.3 F Pulse Rate 50 56 Respiratory Rate 16 16 Blood Pressure 95/52 L 99/56 L Pulse Oximetry 99 97 Oxygen Delivery Method Room Air Room Air BMI result Body Mass Index 42.0 Course Course Course Narrative: This is a rapid medical exam performed by Jenny Bhatia NP: Additional HPI, ROS, PE not included below will be deferred to primary provider. 07/29/24 15:57 Patient is a 34-year-old female presenting to the emergency department with complaint of severe headache, fatigue. History of head injury on 06/13 was hit on the back of the head with a piece of ice. She is currently on post concussion protocol. Seen here on 07/27 for seizure like activity. No prior hx of szs. Today was walking to the bed, became weak, sweaty, shaking and convulsing next to the bed. SO lowered her to the bed, she did not fall to the floor. He reports this activity lasted 1 minute. Denies b/b incontinence. Plan: labs Medications Administered Discontinued Medications Generic Name Dose Route Start Last Admin Trade Name Anay PRN Reason Stop Dose Admin Acetaminophen 650 mg 07/29/24 19:43 07/29/24 19:44 Acetaminophen 325 Mg Tablet PO 07/29/24 19:44 650 mg ONCE ONE Administration Ibuprofen 400 mg 07/29/24 20:56 07/29/24 21:33 Ibuprofen 400 Mg Tablet PO 07/29/24 20:57 400 mg ONCE STA Administration Lorazepam 1 mg 07/29/24 20:56 07/29/24 21:32 Lorazepam 1 Mg Tablet PO 07/29/24 20:57 1 mg ONCE ONE Administration Medical Decision Making Medical Decision Making [facility] Narrative: 34-year-old female with a history of hypertension, depression, anxiety, currently being treated for work related closed head injury with post concussion syndrome who presents emergency department for evaluation of altered mental status and possible seizure. based on the patient and the patient's boyfriend's description of the events, the patient most likely had a hyperventilation syndrome / panic attack as the cause of her symptoms. The patient has been under increased financial stress and she is not working, she has had increased anxiety and depression. Physical examination was unremarkable. Differential diagnosis: Includes but is not limited to seizure, hyperventilation syndrome, anemia, electrolyte abnormalities Course: Patient's laboratory evaluation revealed a normal CBC, normal CMP. Patient's COVID-19, influenza and RSV tests were negative. The patient's quantitative beta hCG was below detectable limits. I did discuss hyperventilation syndrome, anxiety and depression with the patient and the patient's significant other. I do believe the patient would benefit from a short course of Ativan, therefore she was prescribed Ativan 1 mg t.i.d. and at night as needed for anxiety and inability to sleep. Patient was advised to keep her appointment with the neurologist for postconcussion syndrome and to follow-up with [facility]. I did give the patient the number to [facility] and told her she should contact this group to see if she can get help with depression anxiety and this may also improve some of her postconcussion symptoms. Patient was given printed and verbal instructions and discharged home. Admission/Observation Consideration of admission/observation: Escalation of care including admission/observation considered ( yes) Lab Data MDM Lab Attestation statement: I reviewed the patient's lab results. 07/29/24 16:19 07/29/24 16:19 Labs: Lab Results 07/29/24 Range/Units 16:19 WBC 7.7 (4.8-10.8) X10*3/uL RBC 4.36 (4.20-5.50) X10*6/uL Hgb 13.4 (12.0-16.0) g/dl Hct 39.2 (37.0-47.0) % MCV 89.9 (80.0-98.0) fL MCH 30.7 (27.0-33.0) pg MCHC 34.2 (31.0-35.0) g/dl RDW 12.2 (11.0-16.0) % Plt Count 295 (160-400) X10*3/uL MPV 9.1 L (9.4-12.3) fL Immature Gran % (Auto) 0.1 (0.0-0.4) % Neut % (Auto) 61.1 (45-73) % Lymph % (Auto) 28.3 (20-40) % [place] % (Auto) 7.3 (2-11) % Eos % (Auto) 2.7 (0-4) % Baso % (Auto) 0.5 (0-2) % Lymph # (Auto) 2.2 (1.2-4.9) X10*3/uL [place] # (Auto) 0.6 (0.1-1.2) X10*3/uL Eos # (Auto) 0.2 (0.0-0.4) X10*3/uL Baso # (Auto) 0.0 (0.0-0.2) X10*3/uL Abs Immat Gran (auto) 0.01 (0.00-0.03) X10*3/uL Absolute Neuts (auto) 4.7 (2.0-8.3) x10*3/uL Absolute Nucleated RBC 0.000 (0.0-0.012) X10*3/uL Nucleated RBC % (auto) 0.0 (0.0-0.2) /100WBC Sodium 139 (135-145) mmol/L Potassium 4.2 (3.3-5.1) mmol/L Chloride 107 (96-108) mmol/L Carbon Dioxide 25 (22-29) mmol/L Anion Gap 11 L (12-20) BUN 9 (9-16) mg/dL Creatinine 0.75 (0.5-1.4) mg/dL Estim Creat Clear Calc 139.3 Estimated GFR > 60 Random Glucose 86 (60-115) mg/dL Lactic Acid 1.1 (0.5-2.0) mmol/L Calcium 9.1 (8.4-10.2) mg/dL Total Bilirubin 0.4 (0.0-1.0) mg/dL AST 19 (5-31) U/L ALT 25 (0-31) U/L Alkaline Phosphatase 75 (39-117) U/L Total Protein 7.0 (6.5-8.0) g/dL Albumin 3.8 (3.5-5.0) g/dL Beta HCG, Quant < 2 mIU/mL Influenza Type A (PCR) NEGATIVE (Negative) Influenza Type B (PCR) NEGATIVE (Negative) RSV RNA Qual (PCR) NEGATIVE (Negative) SARS-CoV-2 RNA (RT-PCR) NEGATIVE (Negative) Independent Interpretation I performed an independent interpretation of an: EKG Interpretation: My independent interpretation patient's laboratory evaluation done on 07/29/2024 at 16:08 hours is as follows: Sinus bradycardia with a rate of 51, normal WI interval, QRS duration QTC interval, no ST segment elevation, no ST segment depression, inverted T-wave in lead 3 otherwise no significant abnormalities. Independent Historian Clinical information obtained from an independent historian. History obtained from or confirmed by: Other ( significant other) Prescription Management I considered prescription management with: Other ( anti anxiety lytic: Ativan) Chronic Conditions Patient?s care impacted by: Hypertension Discharge Plan Discharge Clinical Impression: Acute hyperventilation syndrome, Anxiety Patient Disposition: Home, Self-Care Additional Instructions: Your symptoms are consistent with hyperventilation syndrome. This is often triggered by a stressful event which causes your body to release adrenaline. The adrenaline causes your heart to beat fast And also causes you to breathe faster. You then developed a a feedback loop wear your body releasing more adrenaline, your heart rate goes faster, yourbreathe faster and eventually this changes your blood chemistries causing you to developed numbness and tingling in your hands, feet, lips and tongue and this makes it difficult for you to talk. Eventually, it causes your vision to go from good to black and can cause you to pass out. It can also cause you to develop spasms of your hands, feet and your body which can sometimes look like a seizure. Hyperventilation syndrome is a sign that you are under increased stress and are probably having problems with anxiety and depression. I want you to contact the counseling service below to get help with stress and anxiety. you can take Ativan 1 mg pills, 1 pill every 3 times a day as needed for anxiet, but I want you to take 1 pill at night for the next 3-4 nights see if this helps with your sleep and with anxiety. This medication will make you sleepy, do not drive or work while taking this medication. This medication can be addicting, if your concerned about addiction you can ask the pharmacist for less medications or do not get the prescription filled. Continue taking medications as prescribed by your providers Follow-up with your doctor in 2 days. Please return to the emergency department if your symptoms get worse or if you develop any symptoms that are concerning to you. I believe that you have untreated anxiety and depression and I want you to call the number below to make an appointment to try to get help for these [address] [phone] Prescriptions: New lorazepam [Ativan] 1 mg tablet 1 mg PO TID PRN (Reason: anxiety) Qty: 15 0RF Rx Instructions: Patient may request partial fill No Action lorazepam [Ativan] 0.5 mg tablet 0.5 mg PO BEDTIME PRN (Reason: anxiety) Qty: 14 0RF cyclobenzaprine 5 mg tablet 5 mg PO TID PRN (Reason: muscle spasm) Qty: 12 0RF lidocaine 5 % adhesive patch,medicated 1 patch topical DAILY Qty: 15 0RF Rx Instructions: leave on most painful area for up to 12 hrs ibuprofen 600 mg tablet 600 mg PO TID PRN (Reason: pain) Qty: 20 0RF acetaminophen 500 mg tablet 500 mg PO Q6H PRN (Reason: fever or pain) Qty: 20 0RF prednisone 20 mg tablet 40 mg PO DAILY 2 Days Qty: 4 0RF ibuprofen 600 mg tablet 600 mg PO Q6H PRN (Reason: pain) Qty: 20 0RF ondansetron 4 mg tablet,disintegrating 4 mg PO TID PRN (Reason: nausea and vomiting) 14 Days Qty: 30 2RF magnesium oxide 500 mg magnesium tablet 500 mg PO DAILY Qty: 30 0RF riboflavin (vitamin B2) 400 mg tablet 400 mg PO DAILY Qty: 30 2RF propranolol 120 mg capsule,extended release 24hr 120 mg PO BEDTIME Qty: 20 0RF sumatriptan succinate 50 mg tablet See Rx Instructions PO .COMPLEX Qty: 14 0RF Rx Instructions: take 1 tab at onset of headache; if no relief may repeat 1 tab after at least 2 hrs; max = 4 tabs/24 hr PO Interventions: ED Discharge Assessment Last Done: 07/29/24 21:39 Discharge Date/Time: 07/29/24 21:41 Print Language: Uzbek
--- NOTE | 2024-07-29 16:02 | ECG_ITS ---
Test Reason : SIEZURE LIKE ACTIVITY Blood Pressure : */* mmHG Vent. Rate : 51 BPM Atrial Rate : 51 BPM P-R Int : 140 ms QRS Dur : 78 ms QT Int : 408 ms P-R-T Axes : 60 34 13 degrees QTcB Int : 376 ms Sinus bradycardia Low voltage QRS Borderline ECG When compared with ECG of 27-Jul-2024 18:28, No significant change was found Referred By: Shakira Bhatia Electronically Signed By: ANNE RIOS
[2024-07-29 16:24] LABS: MANUAL DIFF FLAG NO
[2024-07-29 16:39] LABS: Basophils Percent Auto 0.5 % (0-2); Eosinophils Absolute Auto 0.2 X10*3/uL (0.0-0.4); Eosinophils Percent Auto 2.7 % (0-4); Hematocrit 39.2 % (37.0-47.0); Hemoglobin 13.4 g/dl (12.0-16.0); Imm Gran Abs Auto 0.01 X10*3/uL (0.00-0.03); Imm Gran Pct Auto 0.1 % (0.0-0.4); Lymphocytes Absolute Auto 2.2 X10*3/uL (1.2-4.9); Lymphocytes Percent Auto 28.3 % (20-40); Mean Corpuscular HGB Conc 34.2 g/dl (31.0-35.0); Mean Corpuscular Hemoglobin 30.7 pg (27.0-33.0); Mean Corpuscular Volume 89.9 fL (80.0-98.0); Mean Platelet Volume 9.1 fL (9.4-12.3); Monocytes Absolute Auto 0.6 X10*3/uL (0.1-1.2); Monocytes Percent Auto 7.3 % (2-11); Neutrophils Absolute Auto 4.7 x10*3/uL (2.0-8.3); Neutrophils Percent Auto 61.1 % (45-73); Platelet Count 295 X10*3/uL (160-400); Red Blood Count 4.36 X10*6/uL (4.20-5.50); Red Cell Distribution Width 12.2 % (11.0-16.0); White Blood Count 7.7 X10*3/uL (4.8-10.8)
[2024-07-29 16:40] LABS: Lactic Acid 1.1 mmol/L (0.5-2.0)
[2024-07-29 16:47] LABS: Alanine Aminotransferase 25 U/L (0-31); Albumin Level 3.8 g/dL (3.5-5.0); Alkaline Phosphatase 75 U/L (39-117); Anion Gap 11 (12-20); Aspartate Amino Transferase 19 U/L (5-31); Bilirubin Total 0.4 mg/dL (0.0-1.0); Blood Urea Nitrogen 9 mg/dL (9-16); Calcium 9.1 mg/dL (8.4-10.2); Carbon Dioxide 25 mmol/L (22-29); Chloride 107 mmol/L (96-108); Creatinine Clr Calc Pharmacy 139.3; Estimated Glomerular Filt Rate > 60; Glucose Random 86 mg/dL (60-115); Potassium 4.2 mmol/L (3.3-5.1); Sodium 139 mmol/L (135-145)
[2024-07-29 16:49] LABS: HCG Quantitative < 2 mIU/mL
[2024-07-29 17:02] LABS: Influenza A PCR NEGATIVE (Negative); Influenza B PCR NEGATIVE (Negative); Resp Syncy Virus RNA Qual PCR NEGATIVE (Negative); SARS COV2 PCR INHOUSE NEGATIVE (Negative)
[2024-07-29] MEDS: Acetaminophen 325 MG TABLET 650 MG PO (19:44)
[2024-07-29 20:58] VITALS: BP 95/52; PULSE 50; RESP 16; TEMP 36.9; O2SAT 99
[2024-07-29] MEDS: LORazepam 1 MG TABLET PO (21:32)
[2024-07-29] MEDS: Ibuprofen 400 MG TABLET PO (21:33)
[2024-07-29 21:39] VITALS: BP 99/56; PULSE 56; RESP 16; TEMP 36.8; O2SAT 97
== END 2024-07-29 21:41 | disposition home or self-care (01) ==
PROVIDERS: Registered Nurse Emergency; Emergency Provider Emergency Medicine Emergency Medical Services
DX: F45.8 Other somatoform disorders (principal); F41.9 Anxiety disorder, unspecified; Z03.818 Encounter for observation for suspected exposure to other biological agents ruled out
CPT/HCPCS: 0241U; 80053; 83605; 84702; 85025; 93005; 99283; 99285

== ENCOUNTER → 2024-07-29 16:02 | Outpatient (BNV) | payer OTHER, SELFPAY | PROVIDERS: Emergency Provider Emergency Medicine Emergency Medical Services; Visit Provider Internal Medicine | DX: R00.1 Bradycardia, unspecified (principal); R94.31 Abnormal electrocardiogram [ECG] [EKG] | CPT/HCPCS: 93010 ==

== ENCOUNTER → 2024-08-18 10:08 | Outpatient (BNVA) | payer OTHER, SELFPAY | PROVIDERS: Visit Provider Physician Assistant Medical | DX: F07.81 Postconcussional syndrome (principal); S16.1XXD Strain of muscle, fascia and tendon at neck level, subsequent encounter; W20.8XXD Other cause of strike by thrown, projected or falling object, subsequent encounter | CPT/HCPCS: 99213 ==

== ENCOUNTER → 2024-09-16 10:46 | Outpatient (BNVA) | payer OTHER, SELFPAY | PROVIDERS: Visit Provider Physician Assistant Medical | DX: S16.1XXD Strain of muscle, fascia and tendon at neck level, subsequent encounter (principal); F07.81 Postconcussional syndrome; W20.8XXD Other cause of strike by thrown, projected or falling object, subsequent encounter | CPT/HCPCS: 99213 ==

== ENCOUNTER 2024-10-13 10:00 | Outpatient (RCR) | payer OTHER, SELFPAY ==
--- NOTE | 2024-07-26 15:31 | MHC.PT.EP ---
[facility] [place] Office [place] Office [place] Office [address] Jacki Macias [address] [phone] F: [phone] F: [phone] F: [phone] F: [phone] Physical Therapy Plan of Care Date of Evaluation: 07/23/24 Date of Surgery: Diagnosis: post concussive syndrome; cervical strain. Assessment: Pt is a 34 y/o female referred to PT for eval and treat of post concussive syndrome and cervical strain after an incident at her place of employment as Pt reports a sheet of ice fell from a roof striking her on 06/13/24 and her condition is resulting in decreased tolerance for performing heavy HH chores, lifting objects of weight, ability to concentrate and read, turning her head to the R, driving as well as disturbed sleep secondary to decreased cervical ROM, increased cervical accessory tissue tension and TTP of her suboccipitals, decreased balance, gait abnormality, Frequent ULLOA and cervical/ upper back pain. Pt is deemed an appropriate candidate to receive skilled PT services to address their physical impairments in order to improve their functional ability. Frequency and Duration: The patient will be seen 2 x/ wk x 4 wks. Short Term Goals: Initiate home program. Improve baseline pain to at most 1-5/10; initial 3-8/10. Pt will no longer be TTP of her suboccipitals. Audio Technician Goals: I with home program. Pt will improve Dynamic Gait Index to at least 19/24; initial; 16. Pt will improve Neck Disability Index by at least 9 points. Pt will demonstrate symmetrical cervical rotation AROM; initial: limited to the R. Pt will report at most severe ULLOA which come infrequently; initial: severe and frequent. Treatment Plan: Modalities to reduce pain, spasms and effusion. Manual therapy to restore motion and function. Therapeutic exercise to improve strength and flexibility. Neuromuscular re-education for posture and balance. Therapeutic activities to return to functional activities of daily living. Electronically signed by: Hawk Chirinos PT. Please sign and return to therapist. Thank you for your referral.
--- NOTE | 2024-10-13 17:38 | MHC.PT.DC ---
[facility] [place] Office [place] [facility] [place] [facility] [address] Jacki Macias [address] [phone] F: [phone] F: [phone] F: [phone] F: [phone] Physical Therapy Discharge Report Diagnosis: post concussive syndrome; cervical strain. Date of Surgery: Date of Evaluation: 07/23/24 Date of Discharge: 10/13/24 Treatments to Date: 14 Cancellations to Date: No Shows to Date: Discharge Status: Improved Function Recommend MD Follow-up Discharge Summary: Yue has been an active participant in her therapy in the clinic with home participation as tolerated. During her therapy Yue has made some improvements in her functional tolerance particularly of her cervical pain and now demonstrates WNL symmetrical ROM. She did find TENS Estim beneficial to her cervical pain and was educated that they are available on the open market and may be available by prescription. Yue persists with some mild cervical pain though her primary continued deficit is her concussion symptoms which continue to be significantly limiting physically and cognitively; she is recently seeing OT concussion specialty. Electronically signed by: Hawk Chirinos PT. Please sign and return to therapist. Thank you for your referral.
== END 2024-10-13 17:39 | disposition home or self-care (01) ==
LOC: HO.PT 10:00
PROVIDERS: Visit Provider Physician Assistant Medical
DX: S06.0XAD Concussion with loss of consciousness status unknown, subsequent encounter (principal); S16.1XXD Strain of muscle, fascia and tendon at neck level, subsequent encounter
CPT/HCPCS: 97014; 97110; 97112; 97140; 97161; 97164; 97530

== ENCOUNTER → 2024-10-18 11:25 | Outpatient (BNVA) | payer OTHER, SELFPAY | PROVIDERS: PCP Internal Medicine Geriatric Medicine; Visit Provider Physician Assistant Medical | DX: S16.1XXD Strain of muscle, fascia and tendon at neck level, subsequent encounter (principal); W20.8XXD Other cause of strike by thrown, projected or falling object, subsequent encounter; F07.81 Postconcussional syndrome; H83.09 Labyrinthitis, unspecified ear | CPT/HCPCS: 99213 ==

== ENCOUNTER → 2024-11-17 10:53 | Outpatient (BNVA) | payer OTHER, SELFPAY | PROVIDERS: PCP Internal Medicine Geriatric Medicine; Visit Provider Physician Assistant Medical | DX: S16.1XXD Strain of muscle, fascia and tendon at neck level, subsequent encounter (principal); W20.8XXD Other cause of strike by thrown, projected or falling object, subsequent encounter; H53.71 Glare sensitivity; H81.90 Unspecified disorder of vestibular function, unspecified ear; G43.009 Migraine without aura, not intractable, without status migrainosus | CPT/HCPCS: 99213 ==

== ENCOUNTER 2024-12-21 11:00 | Outpatient (RCR) | payer OTHER, MEDICAID, SELFPAY ==
--- NOTE | 2024-10-06 12:45 | MHC.OT.EP ---
[address] [phone] Occupational Therapy Plan of Care Patient Name: Sara Turner Date of Evaluation: 10/06/24 Diagnosis: Post concussion syndrome Pain Location: Headaches can occur daily, originating in the posterior region and can radiate to bilateral temporal lobes Current: 3/10 Worst: 10/10 Pain Scale Used: Numeric (0 - 10) Aggravating Factors: Direct sunlight, loud noises, Alleviating Factors: Medication, MH and TENS on neck Sensory deprivation Assessment: Pt is a 34 y/o female referred to OT w/ post-concussion syndrome. 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 She reports since the incident she has been experiencing headaches daily, dizziness and unsteadiness, photo/phonophobia, sleep difficulty, and cognitive issues such as slow processing, decreased attention, and poor memory. She also notes changes in mood, feeling irritable, and frustrated with ongoing neck and shoulder pain. She has been going to PT at [facility] in [place] for pain management and balance work. She reports her brain fog is improving however she still struggles with processing speed and remembering new information. She is having difficulty helping her kids with homework, unable to tolerate screen use, and is avoiding public places due to overstimulation. Pt scored 24/30 indicating mild cognitive impairment with difficulty noted in executive functioning, attention, and delayed memory recall. Pt would benefit from skilled OT therapy to address noted barriers and assist in return to OF. Frequency and Duration: The patient will be seen 2x/wk for 6 weeks Short Term Goals: Decrease headache frequency/intensity by 50% Pt will be educated in and trial sleep hygiene strategies Trial EFT and breathing techniques for stress management Pt. will utilize 2-3 remedial and compensatory strategies to improve memory Skilled Nursing Goals: IND with knowledge of ULLOA triggers and reduction strategies IND with sleep hygiene strategies reporting >5 hours of consecutive sleep IND with stress management techniques Improved QOL as evidence by [place] score <32 Improve STM as evidenced by 'normal' score on MOCA Treatment Plan: Home Exercise Program Neuro Re-ed Patient Education Other (see comments) Cognitive therapy, sleep hygiene, nervous system regulation, headache management Electronically Signed By: Tamra Small MS OTR/L Please Sign and return to therapist. Thank you once again for your referral.
--- NOTE | 2024-12-21 12:24 | MHC.OT.DC ---
[facility] Office [address] [phone] F: [phone] F: [phone] Occupational Therapy Discharge Note Patient Name: Sara Turner Provider: Silvana Navarro Diagnosis: Post concussion syndrome Date of Evaluation: 10/06/24 Date of Discharge: 12/21/24 Treatments to Date: 13 Discharge Status: Improved Function Independent with HEP Discharge Summary: Sara was referred to OT in September 2024 and has attended 13 OT sessions. Functional gains noted in headache intensity, sleep disturbances, concentration, and executive functioning skills. She continues to experience headaches daily, however notes that the severity and frequency have improved. She plans to resume PT for neck pain now that she can better tolerate the gym environment. Her MOCA score improved from 24/30 (mild cognitive impairment) to 27/30 (normal cognition) with noted improvements in the areas of executive functioning, attention, and abstract thinking. She continues to struggle with multi-tasking, processing speed, and overstimulation. We have discussed and practiced stress management techniques and she demonstrates good awareness of how to progress cognitive load at home. At this time, pt. has met 4/5 ltg'S set on admission and is in agreement with discharge to home program. Electronically Signed By: Tamra Small MS OTR/L Reviewed/agree with student documentation: Therapist: Please Sign and return to therapist, thank you for your referral.
== END 2025-02-02 14:25 | disposition home or self-care (01) ==
LOC: HO.OTS 11:00
PROVIDERS: PCP Internal Medicine Geriatric Medicine; Visit Provider Physician Assistant Medical
DX: R51.9 Headache, unspecified (principal); F07.81 Postconcussional syndrome
CPT/HCPCS: 97165; 97530

== ENCOUNTER → 2024-12-22 10:50 | Outpatient (BNVA) | payer OTHER, SELFPAY | PROVIDERS: PCP Internal Medicine Geriatric Medicine; Visit Provider Physician Assistant Medical | DX: S06.0X0D Concussion without loss of consciousness, subsequent encounter (principal); W20.8XXD Other cause of strike by thrown, projected or falling object, subsequent encounter | CPT/HCPCS: 99213 ==

== ENCOUNTER → 2025-01-24 11:14 | Outpatient (BNVA) | payer OTHER, SELFPAY | PROVIDERS: PCP Internal Medicine Geriatric Medicine; Visit Provider Emergency Medicine | DX: S06.0X0D Concussion without loss of consciousness, subsequent encounter (principal); W20.8XXD Other cause of strike by thrown, projected or falling object, subsequent encounter | CPT/HCPCS: 99214 ==

== ENCOUNTER → 2025-02-23 11:00 | Outpatient (BNVA) | payer OTHER, SELFPAY | PROVIDERS: PCP Internal Medicine Geriatric Medicine; Visit Provider Emergency Medicine | DX: S06.0X0D Concussion without loss of consciousness, subsequent encounter (principal); W20.8XXD Other cause of strike by thrown, projected or falling object, subsequent encounter | CPT/HCPCS: 99213 ==

== ENCOUNTER → 2025-03-23 13:24 | Outpatient (BNVA) | payer OTHER, SELFPAY | PROVIDERS: PCP Internal Medicine Geriatric Medicine; Visit Provider Emergency Medicine | DX: S06.0X0D Concussion without loss of consciousness, subsequent encounter (principal); W20.8XXD Other cause of strike by thrown, projected or falling object, subsequent encounter | CPT/HCPCS: 99214 ==

== ENCOUNTER → 2025-04-13 09:58 | Outpatient (BNVA) | payer OTHER, SELFPAY | PROVIDERS: PCP Internal Medicine Geriatric Medicine; Visit Provider Emergency Medicine | DX: Z87.820 Personal history of traumatic brain injury (principal); R42 Dizziness and giddiness; R26.81 Unsteadiness on feet | CPT/HCPCS: 99213 ==